=== PATIENT | female | born 1970 | race Caucasian/White ===

== ENCOUNTER → 2019-09-10 | Outpatient (CLI) | payer OTHER ==
--- NOTE | 2019-09-12 17:02 | PE ---
Nuclear medicine PET/CT HISTORY: Solitary pulmonary nodule, initial, lung cancer Patient received 11.4 mCi F-18 FDG intravenously in delayed scanning was performed from the skull bas e to the mid thighs. Localization and attenuation correction CT scan was performed. Small field-of-vi ew images obtained through the head and neck. No comparisons There is a lung mass present in the right upper lobe which shows a lobular contour, central cavitatio n, spiculated margins extending to the pleural surface and measures approximately 3.1 cm, there is as sociated hypermetabolic uptake, SUV is 5.6. Adjacent to the fissure at the superior margin there is a subcentimeter nodule measuring 6 mm. Additional subcentimeter nodules are present in the right upper lobe, axial image #95, 100. No definite associated hypermetabolic uptake. Emphysematous changes are present within the lungs. There is no pleural or pericardial effusion. There is no mediastinal, axill gilberto, or hilar adenopathy. No evident cervical adenopathy. Uptake along the sternocleidomastoid muscle is likely physiologic. abdomen: No evident liver mass. Patient is post cholecystectomy. No suspicious hypermetabolic uptake. No retroperitoneal adenopathy. There is no ascites. Osseous structures show no associated hypermetabolic uptake. IMPRESSION: Hypermetabolic uptake corresponding to patient's cavitary right upper lobe lung mass. The re are additional subcentimeter lung nodules do not show uptake possibly due to small size.
== END | disposition home or self-care (01) ==
LOC: RADPETMAIN 07:48
PROVIDERS: ATTEND Internal Medicine Sleep Medicine
DX: R91.8 Other nonspecific abnormal finding of lung field (principal)
CPT/HCPCS: 78815; A9552

== ENCOUNTER → 2019-10-28 | Outpatient (CLI) | payer OTHER ==
[2019-10-28 10:36] LABS: Basophils # (A) 0.1 k/uL (0-0.2); Basophils % (A) 2 %; Eosinophils # (A) 0.2 k/uL (0-0.7); Eosinophils % (A) 3 %; HCT 45.9 % (34.0-46.0); HGB 14.7 gm/dL (11.4-16.0); Lymphocytes # (A) 2.6 k/uL (1.0-4.8); Lymphocytes % (A) 45 %; MCH 28.5 pg (25.0-35.0); MCHC 32.1 g/dL (31.0-37.0); MCV 88.7 fL (80.0-100.0); Mean Platelet Volume 6.5; Monocytes # (A) 0.3 k/uL (0-1.0); Monocytes % (A) 6 %; Neutrophils # (A) 2.5 k/uL (1.3-7.7); Neutrophils % (A) 43 %; Platelet Count 361 k/uL (150-450); RBC 5.17 m/uL (3.80-5.40); RDW 12.9 % (11.5-15.5); WBC 5.8 k/uL (3.8-10.6)
[2019-10-28 10:45] LABS: African American GFR (CKD) >90 (>60 ml/min/1.73 sqM); Anion Gap 7 mmol/L; Blood Urea Nitrogen 11 mg/dL (7-17); Carbon Dioxide 25 mmol/L (22-30); Chloride 105 mmol/L (98-107); Non-African American GFR(CKD) >90 (>60 ml/min/1.73 sqM); Potassium 4.4 mmol/L (3.5-5.1); Sodium 137 mmol/L (137-145)
[2019-10-28 10:56] LABS: Appearance,Urine Clear (Clear); Bacteria,Urine Rare /hpf; Bilirubin,Urine Negative (Negative); Blood,Urine Moderate (Negative); Color,Urine Yellow; Glucose,Urine (UA) Negative (Negative); Hyaline Casts,Urine 1 /lpf (0-2); Ketones,Urine Negative (Negative); Leukocyte Esterase,Urine Negative (Negative); Nitrite,Urine Negative (Negative); PH, Urine 6.5 (5.0-8.0); Protein,Urine Negative (Negative); RBC,Urine 41 /hpf (0-5); Specific Gravity,Urine 1.013 (1.001-1.035); Squamous Epithelial Cell,Urine <1 /hpf (0-4); Urobilinogen,Urine <2.0 mg/dL (<2.0)
== END | disposition home or self-care (01) ==
LOC: LABWHC1 09:51
PROVIDERS: ATTEND Thoracic Surgery (Cardiothoracic Vascular Surgery)
DX: Z01.812 Encounter for preprocedural laboratory examination (principal); C34.11 Malignant neoplasm of upper lobe, right bronchus or lung
CPT/HCPCS: 36415; 80051; 81001; 82565; 84520; 85025

== ENCOUNTER 2019-11-03 05:34 | Inpatient (IN) | payer OTHER ==
[2019-11-03] MEDS ORDERED: ONDANSETRON 4 MG/2 ML VIAL IVP ONE (05:44)
[2019-11-03] MEDS ORDERED: HYDROmorphone 0.5 MG/0.5 ML SYRINGE IVP PRN (05:44)
[2019-11-03] MEDS ORDERED: LACTATED RINGERS 1,000 ML IV SCH ×2 (05:44)
[2019-11-03] MEDS ORDERED: SCOPOLAMINE 1.5MG/72HR PATCH TRANSDERM ONE (05:44)
[2019-11-03] MEDS ORDERED: LIDOCAINE 1% 20 ML VIAL (10MG/ML) FOR IV START INTRADERMA PRN (05:44)
[2019-11-03] MEDS ORDERED: DEXAMETHASONE SOD PHOSPHATE 10 MG/ML 1 ML VIAL IV ONE (05:44)
[2019-11-03] MEDS: VANCOMYCIN 1,000 MG in SODIUM CHLORIDE 0.9% 250 ML IVPB ONE ×2 (08:00→08:28)
[2019-11-03] MEDS ORDERED: BUPIVACAINE (PF) 0.5% 30 ML VIAL SQ ONE ×2 (08:28)
[2019-11-03] MEDS ORDERED: NICOTINE 14MG/24HR PATCH TRANSDERM PRN (10:13)
--- NOTE | 2019-11-03 10:39 | P.OP ---
Date of Procedure: 11/03/19 Preoperative Diagnosis: Lung carcinoma right upper lobe Postoperative Diagnosis: Same Procedure(s) Performed: Robotic-assisted thoracoscopic right upper lobectomy with mediastinal lymph node dissection Anesthesia: ARMAND Surgeon: Edenilson Carnes Plastic Outfitter #1: Johnnie Garcia Estimated Blood Loss (ml): 20 IV fluids (ml): 1,100 Urine output (ml): 200 Pathology: other (Lymph node stations R4, level 7, R8, R9, R 10, R 11; right upper lobe with frozen section of bronchial margin) Condition: stable Disposition: PACU Indications for Procedure: 48-year-old female with right upper lobe mass needle biopsy positive for non- small cell carcinoma. Metastatic workup was negative. Pulmonary function testing was adequate to tolerate lobectomy. Patient was recommended to undergo right upper lobectomy. Minimally invasive approach was planned. Informed consent was obtained. Operative Findings: Fissures were nearly complete. The tumor was evident in the posterior segment of the right upper lobe peripherally. Did not involve the lobe across the fissure. There was marketed hilar and mediastinal anthracotic adenopathy. Frozen section of the bronchial margin was negative. Description of Procedure: The patient was brought to the operating room, placed supine on the operating table, anesthetized and intubated with a double-lumen endotracheal tube. Tube was positioned with fiberoptic bronchoscopy. Patient was turned in the left lateral decubitus position and appropriately positioned for robotic lobectomy. Tube positioning was confirmed with the bronchoscope heavily left chest sterilely prepped and draped. After a timeout the initial incision was made in the eighth interspace in the anterior axillary line. Robotic 8 mm port was placed here single lung ventilation ensued. After confirming position in the pleural space CO2 insufflation was begun. A 12 mm port was put 10 cm posteriorly in the eighth interspace. Second 12 mm port was put 10 cm anteriorly in the seventh interspace. A second 8 mm port was put posteriorly near the spine in the fifth interspace. A working port was placed at the level of the diaphragm between the 2 most anterior port. The robot was docked. We then began the dissection. After exploring the chest with findings as noted above we took down the inferior pulmonary ligament. Small lymph node was noted at the lower portion of the inferior pulmonary ligament and this was resected and sent as level IX lymph node. Dissection was carried posteriorly up behind the inferior pulmonary vein and into the subcarinal region. Paraesophageal and subcarinal nodes were resected and labeled as level's R8 and level VII lymph nodes respectively. Dissection was carried anteriorly onto the bronchus intermedius and the takeoff of the right upper lobe bronchus was identified. Dissection in this jose de jesus was performed. R 11 lymph nodes were resected. Lingular artery was identified. It was encircled and ligated and divided with a robotic vascular stapler. We were now able to encircle the right upper lobe bronchus resected some more R 11 lymph nodes and ligated and divided the bronchus with a robotic green stapler. We now transitioned to an anterior approach. Branches of the superior pulmonary vein draining the upper lobe were identified encircled and divided with a robotic stapler. Dissection was carried superiorly up in the hilum and the R 10 lymph nodes were resected. Dissection was then carried down onto the pulmonary artery and the truncus anteriormost this was identified encircled and ligated and divided with a vascular stapler. Further R 11 lymph nodes were taken from the region of the pulmonary artery distal to the takeoff of the truncus anterior doses and the remainder of the hilar dissection was completed. The fissures were completed with multiple firings of a robotic 45 mm blue stapler. Lobectomy specimen was then placed in an Endo Catch bag and retracted inferiorly. We completed the lymph node dissection by removing further R 10 lymph nodes inferior to the azygos vein and then dissecting the lymph nodes out in the R4 region superior to the azygos vein and between the trachea and cava. Good hemostasis was verified throughout. At this point the robot was undocked and the working port incision was enlarged somewhat. The lobectomy specimen was brought through this incision in the Endo Catch bag and sent for frozen section of the bronchial margin which subsequently returned negative. The chest was irrigated with warm water and the bronchial stump was noted to have no air leak. There was mild air leak from the staple fissure. 28-Slovenian chest tube was placed through the anteriormost incision and positioned posterior apically. It was secured with an 0 Ethibond suture. Incisions were then closed with layers of Vicryl suture. Rib blocks were performed posteriorly at the level of the incisions using half percent Marcaine. Incisions were dressed with skin glue and Band-Aid dressings and an chest tube dressing around the chest tube site. Patient was turned supine and extubated and transferred to recovery in stable condition. Blood loss for the case was 20 mL.
--- NOTE | 2019-11-03 11:00 | XR ---
EXAMINATION TYPE: XR chest 1V portable DATE OF EXAM: 11/03/2019 COMPARISON: NONE HISTORY: Postop lobectomy. TECHNIQUE: Single frontal view of the chest is obtained. FINDINGS: Status post right upper lobectomy. Right-sided thoracostomy tube terminates of the medial right upper lung apex. No residual pneumothorax seen. Trace subcutaneous emphysema. Right hemithorax volume loss. Multifocal linear subsegmental left-sided atelectasis. Cardia mediastinal silhouette is within normal limits. IMPRESSION: Postsurgical change of the right lung with right thoracostomy tube placement. No residua l pneumothorax. Multifocal subsegmental atelectasis on the left.
[2019-11-03] MEDS ORDERED: DEXTROSE 5%-0.45% NACL 1,000 ML IV SCH (11:43)
[2019-11-03] MEDS ORDERED: IPRATROPIUM-ALBUTEROL 3 ML NEB IH PRN (11:43)
[2019-11-03] MEDS ORDERED: ONDANSETRON 4 MG/2 ML VIAL IVP PRN (11:43)
[2019-11-03] MEDS ORDERED: ACETAMINOPHEN TAB 500 MG TAB PO PRN (11:43)
[2019-11-03] MEDS: KETOROLAC 30 MG/ML 1 ML VIAL IVP SCH ×3 (12:07→23:27)
[2019-11-03] MEDS: IPRATROPIUM-ALBUTEROL 3 ML NEB IH SCH ×3 (12:26→20:44)
--- NOTE | 2019-11-03 14:49 | P.CNPUL ---
History of Present Illness Consult date: 11/03/19 Reason for consult: dyspnea, COPD, lung mass, abnormal CXR/CT Chief complaint: Right upper lobe mass History of present illness: This is a pleasant 48-year-old female who was seen evaluated examined on third floor this patient is well-known to me from the office she has been found to have a right upper lobe mass underwent robotic right upper lobe lobectomy with mediastinal lymph node dissection, postop day #0 evaluated postoperatively, patient has a right-sided chest tube with some air leak is present she is awake and alert denies any chest pain or shortness of breath some 8 The operative site are present Review of Systems All systems: negative Past Medical History Past Medical History: COPD, Pneumonia Additional Past Medical History / Comment(s): RIGHT UPPER LOBE LUNG CANCER DIAGNOSED IN JULY 2019. History of Any Multi-Drug Resistant Organisms: None Reported Past Surgical History: Appendectomy, Cholecystectomy Additional Past Surgical History / Comment(s): LUNG BIOPSY. Past Anesthesia/Blood Transfusion Reactions: No Reported Reaction Past Psychological History: No Psychological Hx Reported Smoking Status: Current every day smoker Past Alcohol Use History: None Reported Additional Past Alcohol Use History / Comment(s): QUIT JULY 2019. SMOKED 30 YRS. Past Drug Use History: Marijuana Additional Drug Use History / Comment(s): DAILY USED FOR PAIN CONTROL. - Past Family History Mother Family Medical History: Cancer Additional Family Medical History / Comment(s): LUNG CANCER Medications and Allergies Home Medications Medication Instructions Recorded Confirmed Type HYDROcodone/APAP 10-325MG [Hazen 1 tab PO Q6H PRN 10/27/19 10/27/19 History 10-325] Ipratropium Nebulized [Atrovent 1 dose INHALATION TID 10/27/19 10/27/19 History Nebulized 0.2 MG/ML] Nicotine 14Mg/24Hr Patch [Habitrol] 1 patch TOPICAL DAILY PRN 10/27/19 10/27/19 History Allergies Allergy/AdvReac Type Severity Reaction Status Date / Time Penicillins Allergy Anaphylaxis Verified 10/27/19 12:15 Physical Exam Vitals: Vital Signs Temp Pulse Pulse Resp BP BP Pulse Ox 11/03/19 13:53 66 16 113/57 100 11/03/19 13:43 60 16 109/59 99 11/03/19 13:02 70 16 110/69 100 11/03/19 12:43 69 16 105/70 99 01/09/20 12:29 99 11/03/19 12:15 62 16 107/59 99 11/03/19 12:02 98.2 F 61 16 103/85 99 11/03/19 11:30 56 L 20 103/59 100 11/03/19 11:15 53 L 20 130/60 100 11/03/19 11:00 65 20 119/57 100 11/03/19 10:45 53 L 20 135/69 99 11/03/19 10:30 62 20 148/74 99 11/03/19 10:21 97.0 F L 67 20 148/66 99 11/03/19 06:23 98.4 F 67 20 139/84 99 Intake and Output 11/02/19 11/03/19 11/03/19 22:59 06:59 14:59 Intake Total 300 1890 Output Total 180 Balance 300 1710 Intake: IV 300 1650 Oral 240 Output: Urine 160 Estimated Blood Loss 20 Other: Weight 69.5 kg - Constitutional General appearance: average body habitus, cooperative, disheveled, mild distress - EENT Eyes: anicteric sclerae, EOMI, PERRLA, normal appearance ENT: normal oropharynx Ears: bilateral: normal - Neck Neck: normal ROM Carotids: bilateral: upstroke normal Thyroid: negative: normal size - Respiratory Respiratory: bilateral: CTA - Cardiovascular Rhythm: regular Heart sounds: normal: S1, S2 - Gastrointestinal General gastrointestinal: decreased bowel sounds - Integumentary Integumentary: normal turgor - Neurologic Neurologic: CNII-XII intact - Musculoskeletal Musculoskeletal: gait normal, generalized weakness, strength equal bilaterally - Psychiatric Psychiatric: A&O x's 3, appropriate affect, intact judgment & insight Results - Diagnostic Findings Chest x-ray: report reviewed, image reviewed (Finding as noted above) Assessment and Plan Assessment: Right upper lobe non-small cell cancer stage I Severe degree of COPD Extensive history of smoking and nicotine use Mood disorder depression Plan: Continue deep breathing exercise DVT and peptic ulcer disease prophylaxis Follow chest x-ray Pain control Time with Patient: Greater than 30
[2019-11-03] MEDS: HYDROcodone/APAP 10-325MG 1 EACH TAB PO PRN ×2 (15:06→20:31)
[2019-11-03] MEDS: HEPARIN SODIUM,PORCINE 5,000 UNIT/ML 1 ML VIAL SQ SCH ×2 (16:44→23:27)
[2019-11-03] MEDS: CLINDAMYCIN 900 MG in DEXTROSE 5% IN WATER 50 ML IVPB SCH ×2 (16:48)
[2019-11-04] MEDS: CLINDAMYCIN 900 MG in DEXTROSE 5% IN WATER 50 ML IVPB SCH ×2 (00:01)
[2019-11-04] MEDS: HYDROcodone/APAP 10-325MG 1 EACH TAB PO PRN ×4 (05:33→23:33)
[2019-11-04] MEDS: PANTOPRAZOLE 40 MG TABLET PO SCH (05:34)
--- NOTE | 2019-11-04 06:56 | XR ---
EXAMINATION TYPE: XR chest 1V DATE OF EXAM: 11/04/2019 CLINICAL HISTORY: Postpartial pneumonectomy progress study. TECHNIQUE: Single AP portable upright view of the chest is obtained. COMPARISON: Chest x-ray from one day earlier. Outside CTA chest August 16, 2019 FINDINGS: There is right apical chest tube with adjacent subcutaneous emphysema. No identifiable pne umothorax. Background chronic emphysematous change with patchy right greater than left bibasilar atelectasis. EK G leads are now present. Cardiac silhouette size is stable and within normal limits. Osseous structur es are intact. IMPRESSION: Overall stable findings, right apical chest tube without residual pneumothorax.
[2019-11-04 07:03] LABS: African American GFR (CKD) >90 (>60 ml/min/1.73 sqM); Anion Gap 4 mmol/L; Basophils # (A) 0.1 k/uL (0-0.2); Basophils % (A) 1 %; Blood Urea Nitrogen 10 mg/dL (7-17); Calcium 8.4 mg/dL (8.4-10.2); Carbon Dioxide 27 mmol/L (22-30); Chloride 105 mmol/L (98-107); Eosinophils # (A) 0.1 k/uL (0-0.7); Eosinophils % (A) 1 %; Glucose 91 mg/dL (74-99); HCT 34.8 % (34.0-46.0); HGB 11.2 gm/dL (11.4-16.0); Lymphocytes # (A) 1.9 k/uL (1.0-4.8); Lymphocytes % (A) 27 %; MCH 28.7 pg (25.0-35.0); MCHC 32.1 g/dL (31.0-37.0); MCV 89.5 fL (80.0-100.0); Mean Platelet Volume 7.1; Monocytes # (A) 0.3 k/uL (0-1.0); Monocytes % (A) 5 %; Neutrophils # (A) 4.5 k/uL (1.3-7.7); Neutrophils % (A) 64 %; Non-African American GFR(CKD) >90 (>60 ml/min/1.73 sqM); Platelet Count 274 k/uL (150-450); Potassium 4.4 mmol/L (3.5-5.1); RBC 3.88 m/uL (3.80-5.40); RDW 13.4 % (11.5-15.5); Sodium 136 mmol/L (137-145); WBC 7.1 k/uL (3.8-10.6)
[2019-11-04] MEDS: IPRATROPIUM-ALBUTEROL 3 ML NEB IH SCH ×4 (07:04→19:03)
[2019-11-04] MEDS: KETOROLAC 30 MG/ML 1 ML VIAL IVP SCH ×4 (07:46→23:32)
[2019-11-04] MEDS: HEPARIN SODIUM,PORCINE 5,000 UNIT/ML 1 ML VIAL SQ SCH ×3 (07:47→23:32)
--- NOTE | 2019-11-04 08:34 | P.PN ---
Subjective Progress Note Date: 11/04/19 Principal diagnosis: Lung carcinoma, right upper lobe. Previous medical history of long history of tobacco dependence, recent cessation, COPD, marijuana use, and family history of lung cancer and myocardial infarction. POD #1 Robotic-assisted thoracoscopic right upper lobectomy with mediastinal lymph node dissection The patient is currently sitting up in a recliner in the cardiac stepdown unit in no acute distress. States pain is controlled on current medication regimen, denies shortness of breath. Right pleural chest tube remains to waterseal, very minor air leak present with forceful coughing. No new concerns. Objective - Vital Signs Vital signs: Vital Signs Temp 98.6 F 11/04/19 04:00 Pulse 64 11/04/19 07:16 Resp 18 11/04/19 04:00 BP 95/58 11/04/19 04:00 Pulse Ox 98 11/04/19 07:07 Intake & Output 11/03/19 11/04/19 11/04/19 18:59 06:59 18:59 Intake Total 2470 Output Total 480 1330 Balance 1989 Weight 71.668 kg Intake: IV 1650 Oral 820 Output: Chest Tube Drainage 50 40 Chest Tube Right Mid- 50 40 Axillary Chest Drainage 40 Right Lower Lateral Chest 40 Urine 410 1250 Estimated Blood Loss 20 Other: Voiding Method Indwelling Catheter Indwelling Catheter - Constitutional General appearance: Present: cooperative, no acute distress - Respiratory Details: Lungs sounds clear but diminished bilaterally. Respirations even, nonlabored. Currently on room air with oxygen saturation 98%. Able to achieve 1000 mL on her incentive spirometry. Strong cough. Right pleural chest tube to waterseal, 40 mL thin serosanguineous drainage overnight, 90 mL since surgery, tiny air leak present with forceful coughing only, tidaling present in the waterseal chamber - Cardiovascular Details: S1, S2 present. Regular rate and rhythm, sinus rhythm on telemetry. Palpable peripheral pulses bilaterally. No edema present. No calf pain or tenderness noted. Bilateral lower extremity SCDs present. - Gastrointestinal Gastrointestinal Comment(s): Abdomen soft, nontender, nondistended. Active bowel sounds present 4 quadrants. Tolerating diet. - Genitourinary Genitourinary Comment(s): Anderson present draining clear, yellow urine. - Integumentary Integumentary Comment(s): Skin is warm and dry with evidence of good perfusion. Right lateral chest wall incisions well approximated and covered with dry intact dressings - Neurologic Neurologic: Present: CNII-XII intact - Musculoskeletal Musculoskeletal: Present: gait normal, strength equal bilaterally - Psychiatric Psychiatric: Present: A&O x's 3, appropriate affect, intact judgment & insight - Allied health notes Allied health notes reviewed: nursing - Labs CBC & Chem 7: 11/04/19 06:09 11/04/19 06:09 Labs: Abnormal Lab Results - Last 24 Hours (Table) 11/04/19 11/04/19 Range/Units 06:09 06:09 Hgb 11.2 L D (11.4-16.0) gm/dL Sodium 136 L (137-145) mmol/L - Imaging and Cardiology Chest x-ray: report reviewed, image reviewed Assessment and Plan Assessment: 1. Lung carcinoma, right upper lobe, positive for non-small cell carcinoma per CT-guided needle biopsy, status post robotic-assisted thoracoscopic right upper lobectomy with mediastinal lymph node dissection 2. Previous heavy tobacco dependence 3. COPD 4. Marijuana use 5. Family history of lung cancer and myocardial infarction Plan: 1. Continue right pleural chest tube to water seal for another 24 hours. Will monitor for complete resolution of air leak. Pathology pending. 2. Encourage incentive spirometry use 10 times every hour while awake. 3. Discontinue Anderson. Hep-Lock IV 4. Increase activity, ambulate in hallway 5. Encourage continued smoking cessation 6. Bronchodilators per pulmonology 7. Pain control with current medication regimen. 8. Repeat chest x-ray in the morning 9. More recommendations to follow Time with Patient: Greater than 30
--- NOTE | 2019-11-04 14:29 | P.PN ---
Subjective Progress Note Date: 11/04/19 Principal diagnosis: Right upper lobe non-small cell cancer stage I Severe degree of COPD Extensive history of smoking and nicotine use Mood disorder depression 11/04/2019, patient seen eval examined during the rounds labs reviewed medications reviewed care plan discussed with the patient as well, patient has a right-sided chest tube minimal air leak is present denies any chest pain chest x-ray showed well expanded lungs no residual pneumothorax is seen slight discomfort is present otherwise patient has been doing well This is a pleasant 48-year-old female who was seen evaluated examined on third floor this patient is well-known to me from the office she has been found to have a right upper lobe mass underwent robotic right upper lobe lobectomy with mediastinal lymph node dissection, postop day #0 evaluated postoperatively, patient has a right-sided chest tube with some air leak is present she is awake and alert denies any chest pain or shortness of breath some 8 The operative site are present Objective - Vital Signs Vital signs: Vital Signs Temp 97.9 F 11/04/19 11:10 Pulse 66 11/04/19 11:16 Resp 16 11/04/19 11:10 BP 96/49 11/04/19 11:10 Pulse Ox 99 11/04/19 11:10 Intake & Output 11/03/19 11/04/19 11/04/19 18:59 06:59 18:59 Intake Total 2470 440 Output Total 480 1330 0 Balance 1989 -1329 440 Weight 71.668 kg Intake: IV 1650 200 Clindamycin 900 mg In 200 Dextrose 5% in Water 50 ml @ 50 mls/hr IVPB Q8HR [facility] Rx#:[id number] Oral 820 240 Output: Chest Tube Drainage 50 40 0 Chest Tube Right Mid- 50 40 0 Axillary Chest Drainage 40 Right Lower Lateral Chest 40 Urine 410 1250 Estimated Blood Loss 20 Other: Voiding Method Indwelling Catheter Indwelling Catheter Toilet - Exam - Constitutional General appearance: average body habitus, cooperative, disheveled, mild distress - EENT Eyes: anicteric sclerae, EOMI, PERRLA, normal appearance ENT: normal oropharynx Ears: bilateral: normal - Neck Neck: normal ROM Carotids: bilateral: upstroke normal Thyroid: negative: normal size - Respiratory Respiratory: bilateral: CTA - Cardiovascular Rhythm: regular Heart sounds: normal: S1, S2 - Gastrointestinal General gastrointestinal: decreased bowel sounds - Integumentary Integumentary: normal turgor - Neurologic Neurologic: CNII-XII intact - Musculoskeletal Musculoskeletal: gait normal, generalized weakness, strength equal bilaterally - Psychiatric Psychiatric: A&O x's 3, appropriate affect, intact judgment & insight - Labs CBC & Chem 7: 11/04/19 06:09 11/04/19 06:09 Labs: Abnormal Lab Results - Last 24 Hours (Table) 11/04/19 11/04/19 Range/Units 06:09 06:09 Hgb 11.2 L D (11.4-16.0) gm/dL Sodium 136 L (137-145) mmol/L Assessment and Plan Assessment: Right upper lobe non-small cell cancer stage I Severe degree of COPD Extensive history of smoking and nicotine use Mood disorder depression Plan: Continue deep breathing exercise DVT and peptic ulcer disease prophylaxis Follow chest x-ray Pain control Time with Patient: Greater than 30
[2019-11-05] MEDS: KETOROLAC 30 MG/ML 1 ML VIAL IVP SCH ×3 (06:09→17:51)
[2019-11-05] MEDS: PANTOPRAZOLE 40 MG TABLET PO SCH (06:11)
[2019-11-05] MEDS: HYDROcodone/APAP 10-325MG 1 EACH TAB PO PRN ×3 (06:11→19:41)
--- NOTE | 2019-11-05 07:09 | XR ---
EXAMINATION TYPE: XR chest 2V DATE OF EXAM: 11/05/2019 HISTORY: post lobectomy. REFERENCE: Previous study dated 11/04/2019. FINDINGS: Right pleural drain remains in place. This has been withdrawn slightly. I do not see eviden ce of residual pneumothorax. The lungs are clear. Pleural spaces are clear. The heart is not enlarged . IMPRESSION: NO SIGNIFICANT INTERVAL CHANGE IN CHEST.
[2019-11-05] MEDS: IPRATROPIUM-ALBUTEROL 3 ML NEB IH SCH ×4 (07:50→20:27)
[2019-11-05] MEDS: HEPARIN SODIUM,PORCINE 5,000 UNIT/ML 1 ML VIAL SQ SCH ×2 (08:43→17:49)
--- NOTE | 2019-11-05 09:14 | P.PN ---
Subjective Progress Note Date: 11/05/19 Principal diagnosis: Lung carcinoma, right upper lobe. Previous medical history of long history of tobacco dependence, recent cessation, COPD, marijuana use, and family history of lung cancer and myocardial infarction. POD #1 Robotic-assisted thoracoscopic right upper lobectomy with mediastinal lymph node dissection. The patient is currently lying in bed on the cardiac stepdown unit. She is in no acute distress. He currently denies any complaints of pain or shortness of breath. Remainder oxygen saturation is 96% and she is achieving 1000 mL on her incentive spirometry. Right pleural chest tube remained to waterseal with an intermittent air leak present. Draining thin serosanguineous drainage. Chest x-ray this morning demonstrating a small right apical pneumothorax. Objective - Vital Signs Vital signs: Vital Signs Temp 97.4 F L 11/04/19 19:43 Pulse 76 11/05/19 08:00 Resp 18 11/05/19 05:01 BP 112/78 11/05/19 05:01 Pulse Ox 96 11/05/19 07:52 Intake & Output 11/04/19 11/05/19 11/05/19 18:59 06:59 18:59 Intake Total 440 400 240 Output Total 0 350 Balance 440 50 240 Weight 72.1 kg Intake: IV 200 Clindamycin 900 mg In 200 Dextrose 5% in Water 50 ml @ 50 mls/hr IVPB Q8HR [facility] Rx#:[id number] Oral 240 400 240 Output: Chest Tube Drainage 0 Chest Tube Right Mid- 0 Axillary Chest Urine 350 Other: Voiding Method Toilet Toilet # Voids 1 - Constitutional General appearance: Present: cooperative, no acute distress - Respiratory Details: Lung sounds essentially clear throughout. Respirations are symmetrical and nonlabored. Oxygen saturation 96% on room air. Achieving 1000 mL on her incentive spirometry. Right pleural chest tube to waterseal with an intermittent air leak present. - Cardiovascular Details: Regular rhythm and rate. S1 and S2 present, negative for S3, gallop or murmur. No edema present. Knee-high sequential compression devices in place to bilateral lower extremities. - Gastrointestinal Gastrointestinal Comment(s): Abdomen is soft, nontender and nondistended. Active bowel sounds present in all 4 abdominal quadrants. No guarding or rigidity. No organomegaly appreciated. - Neurologic Neurologic Comment(s): No focal deficits. Neurologic: Present: CNII-XII intact - Musculoskeletal Musculoskeletal: Present: gait normal, strength equal bilaterally - Psychiatric Psychiatric: Present: A&O x's 3, appropriate affect, intact judgment & insight - Allied health notes Allied health notes reviewed: nursing - Labs CBC & Chem 7: 11/04/19 06:09 11/04/19 06:09 - Imaging and Cardiology Chest x-ray: report reviewed, image reviewed Assessment and Plan Assessment: 1. Lung carcinoma, right upper lobe, positive for non-small cell carcinoma per CT-guided needle biopsy, status post robotic-assisted thoracoscopic right upper lobectomy with mediastinal lymph node dissection 2. Previous heavy tobacco dependence 3. COPD 4. Marijuana use 5. Family history of lung cancer and myocardial infarction Plan: 1. Place right pleural chest tube to low continuous wall suction -20 cm H2O due to the intermittent air leak and demonstration of small right apical pneumothorax. Will continue to monitor for complete resolution of air leak. 2. Encourage incentive spirometry use 10 times every hour while awake. 3. Surgical pathology remains pending. 4. Increase activity as tolerated. 5. Continue to discuss the importance of continued smoking cessation. 6. Bronchodilators per pulmonology management. 7. Pain control with current medication regimen. 8. We will continue to monitor daily chest x-rays. 9. More recommendations to follow based on patient's clinical course. Time with Patient: Greater than 30
[2019-11-05] MEDS ORDERED: MORPHINE SULFATE 2 MG/ML SYRINGE IVP STA (10:12)
[2019-11-05] MEDS: HYDROmorphone 1 MG/ML 1 ML SYRINGE IVP PRN ×2 (15:40→22:39)
--- NOTE | 2019-11-05 15:48 | P.PN ---
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 I Severe degree of COPD Extensive history of smoking and nicotine use Mood disorder depression 11/05/2019, patient seen eval examined during the rounds labs reviewed medications reviewed, air leak is present to the chest tube, x-ray on water seal showed significant pneumothorax this morning issues with the pain and insomnia have been dealt with, patient has been on [place] Toradol and has been started on Dilaudid if pain does not improve Toradol does have been escalated, 11/04/2019, patient seen eval examined during the rounds labs reviewed medications reviewed care plan discussed with the patient as well, patient has a right-sided chest tube minimal air leak is present denies any chest pain chest x-ray showed well expanded lungs no residual pneumothorax is seen slight discomfort is present otherwise patient has been doing well This is a pleasant 48-year-old female who was seen evaluated examined on third floor this patient is well-known to me from the office she has been found to have a right upper lobe mass underwent robotic right upper lobe lobectomy with mediastinal lymph node dissection, postop day #0 evaluated postoperatively, patient has a right-sided chest tube with some air leak is present she is awake and alert denies any chest pain or shortness of breath some 8 The operative site are present Objective - Vital Signs Vital signs: Vital Signs Temp 97.7 F 11/05/19 11:50 Pulse 73 11/05/19 11:50 Resp 20 11/05/19 11:50 BP 122/66 11/05/19 11:50 Pulse Ox 99 11/05/19 11:50 Intake & Output 11/04/19 11/05/19 11/05/19 18:59 06:59 18:59 Intake Total 440 400 360 Output Total 0 350 Balance 440 50 360 Weight 72.1 kg Intake: IV 200 Clindamycin 900 mg In 200 Dextrose 5% in Water 50 ml @ 50 mls/hr IVPB Q8HR [facility] Rx#:[id number] Oral 240 400 360 Output: Chest Tube Drainage 0 Chest Tube Right Mid- 0 Axillary Chest Urine 350 Other: Voiding Method Toilet Toilet Toilet # Voids 1 1 - Exam - Constitutional General appearance: average body habitus, cooperative, disheveled, mild distress - EENT Eyes: anicteric sclerae, EOMI, PERRLA, normal appearance ENT: normal oropharynx Ears: bilateral: normal - Neck Neck: normal ROM Carotids: bilateral: upstroke normal Thyroid: negative: normal size - Respiratory Respiratory: bilateral: CTA - Cardiovascular Rhythm: regular Heart sounds: normal: S1, S2 - Gastrointestinal General gastrointestinal: decreased bowel sounds - Integumentary Integumentary: normal turgor - Neurologic Neurologic: CNII-XII intact - Musculoskeletal Musculoskeletal: gait normal, generalized weakness, strength equal bilaterally - Psychiatric Psychiatric: A&O x's 3, appropriate affect, intact judgment & insight - Labs CBC & Chem 7: 11/04/19 06:09 11/04/19 06:09 Assessment and Plan Assessment: Right upper lobe non-small cell cancer stage I Severe degree of COPD Extensive history of smoking and nicotine use Mood disorder depression Chest pain postoperative Insomnia Plan: Continue deep breathing exercise DVT and peptic ulcer disease prophylaxis Follow chest x-ray Pain control toward old dose has been escalated, continue Davis, if pain not improved then will use Dilaudid Patient is placed on melatonin Time with Patient: Greater than 30
[2019-11-06] MEDS: HEPARIN SODIUM,PORCINE 5,000 UNIT/ML 1 ML VIAL SQ SCH ×3 (00:05→15:48)
[2019-11-06] MEDS: KETOROLAC 30 MG/ML 1 ML VIAL IVP SCH ×5 (00:05→17:14)
[2019-11-06] MEDS: HYDROcodone/APAP 10-325MG 1 EACH TAB PO PRN ×4 (03:24→21:07)
[2019-11-06] MEDS: HYDROmorphone 1 MG/ML 1 ML SYRINGE IVP PRN ×2 (06:30→19:00)
[2019-11-06] MEDS: PANTOPRAZOLE 40 MG TABLET PO SCH (06:31)
--- NOTE | 2019-11-06 06:32 | XR ---
EXAMINATION TYPE: XR chest 1V portable DATE OF EXAM: 11/06/2019 HISTORY: post op right upper lobectomy. REFERENCE: Previous study dated 11/05/2019. FINDINGS: A right pleural drain remains in place. No definite pneumothorax is seen on today's examina tion. The lungs are otherwise clear. Pleural space are clear. The heart is not enlarged. IMPRESSION: I CAN NO LONGER SEE EVIDENCE OF A RIGHT-SIDED PNEUMOTHORAX.
[2019-11-06] MEDS: IPRATROPIUM-ALBUTEROL 3 ML NEB IH SCH ×4 (07:14→20:37)
--- NOTE | 2019-11-06 09:25 | P.PN ---
Subjective Progress Note Date: 11/06/19 Principal diagnosis: Lung carcinoma, right upper lobe. Previous medical history of long history of tobacco dependence, recent cessation, COPD, marijuana use, and family history of lung cancer and myocardial infarction. POD #3 Robotic-assisted thoracoscopic right upper lobectomy with mediastinal lymph node dissection. Postoperative right apical pneumothorax, an expected outcome of this type of surgery. The patient is currently lying in bed on the cardiac stepdown unit. She is in no acute distress. Currently she denies any complaints of pain or shortness of breath. Yesterday her chest tube was placed back to low continuous wall suction due to a positive air leak on her chest tube and a finding of a small right apical pneumothorax on her chest x-ray, once her chest tube was placed back to low continuous wall suction she did complain of pain to her right shoulder 10 out of 10 on the pain scale. Oxygen saturation is 94% on room air and she is achieving 1651-7154 mL on her incentive spirometry. Right pleural chest tube remains to low continuous wall suction at -20 cm H2O with an intermittent air leak present. Draining thin serosanguineous drainage. Chest x-ray completed this morning which shows no evidence of pneumothorax. Objective - Vital Signs Vital signs: Vital Signs Temp 98.2 F 11/05/19 20:00 Pulse 76 11/06/19 07:25 Resp 18 11/06/19 03:51 BP 133/78 11/05/19 20:00 Pulse Ox 94 L 11/06/19 07:17 Intake & Output 11/05/19 11/06/19 11/06/19 18:59 06:59 18:59 Intake Total 480 800 120 Output Total 1200 Balance 480 -400 120 Weight 71.9 kg Intake: Oral 480 800 120 Output: Urine 1200 Other: Voiding Method Toilet Toilet # Voids 1 1 - Constitutional General appearance: Present: cooperative, no acute distress - Respiratory Details: Lung sounds essentially clear throughout. Respirations are symmetrical and nonlabored. Oxygen saturation 94% on room air. Achieving 5232-7356 mL on her incentive spirometry. Right pleural chest tube remains in place to low continuous wall suction -20 cm H2O. Intermittent air leak is present. Draining thin serosanguineous drainage. - Cardiovascular Details: Regular rhythm and rate. S1 and S2 present, negative for S3, gallop or murmur. No edema present. Knee-high sequential compression devices in place to her bilateral lower extremities. - Gastrointestinal Gastrointestinal Comment(s): Abdomen is soft, nontender and nondistended. Active bowel sounds present in all 4 abdominal quadrants. No guarding or rigidity. No organomegaly appreciated. - Integumentary Integumentary Comment(s): Skin is warm and dry. No clubbing or cyanosis is present. Dressing is clean dry and in place to her right chest incisions. Dressing to her right pleural chest tube is clean, dry and in place. - Neurologic Neurologic Comment(s): No focal neurological deficits. Neurologic: Present: CNII-XII intact - Musculoskeletal Musculoskeletal: Present: gait normal, strength equal bilaterally - Psychiatric Psychiatric: Present: A&O x's 3, appropriate affect, intact judgment & insight - Allied health notes Allied health notes reviewed: nursing - Labs CBC & Chem 7: 11/04/19 06:09 11/04/19 06:09 - Imaging and Cardiology Chest x-ray: report reviewed, image reviewed Assessment and Plan Assessment: 1. Lung carcinoma, right upper lobe, positive for non-small cell carcinoma per CT-guided needle biopsy, status post robotic-assisted thoracoscopic right upper lobectomy with mediastinal lymph node dissection 2. Previous heavy tobacco dependence 3. COPD 4. Marijuana use 5. Family history of lung cancer and myocardial infarction 6. Mood disorder depression 7. History of insomnia Plan: 1. We will place her right pleural chest tube to waterseal. Continue to observe for resolution of her intermittent air leak. 2. Encourage incentive spirometry use 10 times every hour while awake. 3. Surgical pathology remains pending. 4. Increase activity as tolerated. Ambulate in the cardiac stepdown unit hallway as tolerated. 5. Continue to discuss the importance of continued smoking cessation. Nicotine patches have been ordered. 6. Bronchodilators per pulmonology management. 7. Pain control with current medication regimen. 8. We will continue to monitor daily chest x-rays. 9. Melatonin has been added as the patient reports that she has a history of insomnia and takes melatonin at home for sleep aid. 10. More recommendations to follow based on patient's clinical course. Time with Patient: Greater than 30
[2019-11-06] MEDS: MELATONIN 1 MG TAB PO SCH (21:07)
--- NOTE | 2019-11-06 22:56 | P.PN ---
Subjective Progress Note Date: 11/06/19 Principal diagnosis: Right upper lobe non-small cell cancer stage I Severe degree of COPD Extensive history of smoking and nicotine use Mood disorder depression 11/06/2019, patient seen eval examined during the rounds labs reviewed medications reviewed care plan discussed, no obvious distress present pain is improved now is still have intermittent air leak out of her chest x-ray showed no significant pneumothorax, chest tube remains on suction 11/05/2019, patient seen eval examined during the rounds labs reviewed medications reviewed, air leak is present to the chest tube, x-ray on water seal showed significant pneumothorax this morning issues with the pain and insomnia have been dealt with, patient has been on [place] Toradol and has been started on Dilaudid if pain does not improve Toradol does have been escalated, 11/04/2019, patient seen eval examined during the rounds labs reviewed medications reviewed care plan discussed with the patient as well, patient has a right-sided chest tube minimal air leak is present denies any chest pain chest x-ray showed well expanded lungs no residual pneumothorax is seen slight discomfort is present otherwise patient has been doing well This is a pleasant 48-year-old female who was seen evaluated examined on third floor this patient is well-known to me from the office she has been found to have a right upper lobe mass underwent robotic right upper lobe lobectomy with mediastinal lymph node dissection, postop day #0 evaluated postoperatively, patient has a right-sided chest tube with some air leak is present she is awake and alert denies any chest pain or shortness of breath some 8 The operative site are present Objective - Vital Signs Vital signs: Vital Signs Temp 98.2 F 11/06/19 20:00 Pulse 85 11/06/19 20:51 Resp 18 11/06/19 20:00 BP 125/75 11/06/19 20:00 Pulse Ox 97 11/06/19 20:00 Intake & Output 11/06/19 11/06/19 11/07/19 06:59 18:59 06:59 Intake Total 800 600 Output Total 1200 90 Balance -400 510 Weight 71.9 kg Intake: Oral 800 600 Output: Drainage 90 Right Lower Lateral Chest 90 Urine 1200 Other: Voiding Method Toilet Toilet Toilet # Voids 1 1 0 # Bowel Movements 0 0 - Exam - Constitutional General appearance: average body habitus, cooperative, disheveled, mild distress - EENT Eyes: anicteric sclerae, EOMI, PERRLA, normal appearance ENT: normal oropharynx Ears: bilateral: normal - Neck Neck: normal ROM Carotids: bilateral: upstroke normal Thyroid: negative: normal size - Respiratory Respiratory: bilateral: CTA - Cardiovascular Rhythm: regular Heart sounds: normal: S1, S2 - Gastrointestinal General gastrointestinal: decreased bowel sounds - Integumentary Integumentary: normal turgor - Neurologic Neurologic: CNII-XII intact - Musculoskeletal Musculoskeletal: gait normal, generalized weakness, strength equal bilaterally - Psychiatric Psychiatric: A&O x's 3, appropriate affect, intact judgment & insight - Labs CBC & Chem 7: 11/04/19 06:09 11/04/19 06:09 Assessment and Plan Assessment: Right upper lobe non-small cell cancer stage I Severe degree of COPD Extensive history of smoking and nicotine use Mood disorder depression Chest pain postoperative Insomnia Plan: Continue deep breathing exercise DVT and peptic ulcer disease prophylaxis Follow chest x-ray Pain control Continue melatonin Time with Patient: Greater than 30
[2019-11-07] MEDS: HEPARIN SODIUM,PORCINE 5,000 UNIT/ML 1 ML VIAL SQ SCH ×4 (00:17→23:03)
[2019-11-07] MEDS: KETOROLAC 30 MG/ML 1 ML VIAL IVP SCH ×5 (00:17→23:02)
[2019-11-07] MEDS: PANTOPRAZOLE 40 MG TABLET PO SCH (06:14)
[2019-11-07] MEDS ORDERED: MAGNESIUM HYDROXIDE 2,400 MG/10 ML CUP PO PRN (06:57)
[2019-11-07] MEDS: IPRATROPIUM-ALBUTEROL 3 ML NEB IH SCH ×4 (07:03→19:44)
--- NOTE | 2019-11-07 07:33 | XR ---
EXAMINATION TYPE: XR chest 1V portable DATE OF EXAM: 11/07/2019 COMPARISON: 11/06/2019 HISTORY: Postop evaluation for right upper lobectomy. TECHNIQUE: Single frontal view of the chest is obtained. FINDINGS: There is a new right apical pneumothorax measuring up to 3.8 cm in maximal apical pleural separation. Thoracostomy tube has been change in position now with the distal tip abutting the medias tinal border. No focal consolidation, pleural effusion or pneumothorax. Cardiomediastinal silhouette is within normal limits. Osseous structures are intact. IMPRESSION: New right apical pneumothorax with apical pleural separation of up to 3.8 cm. Thoracosto my tube repositioning is recommended as well as evaluation for an air leak. A [place] level critical message alert has been initiated for Zack Vann MD via the [employer] on 11/07/2019 7:30 AM. This message alert has been sent to Zack Vann MD via th e preferences provided by the clinician for the receipt of Radiology Critical Findings. Message ID [id number].
--- NOTE | 2019-11-07 08:32 | P.PN ---
Subjective Progress Note Date: 11/07/19 Principal diagnosis: Lung carcinoma, right upper lobe. Previous medical history of long history of tobacco dependence, recent cessation, COPD, marijuana use, and family history of lung cancer and myocardial infarction. POD #4 Robotic-assisted thoracoscopic right upper lobectomy with mediastinal lymph node dissection Postoperative right apical pneumothorax, expected outcome The patient is currently sitting up in bed in no acute distress. States pain is controlled with current medication regimen including IV Dilaudid. Denies shortness of breath. Right pleural chest tube placed to waterseal yesterday with no pneumothorax evident on yesterday's chest x-ray. Continues to have intermittent air leak present, chest x-ray this morning demonstrates recurrence of pneumothorax. Patient does remain asymptomatic. Objective - Vital Signs Vital signs: Vital Signs Temp 98.4 F 11/07/19 04:00 Pulse 74 11/07/19 07:12 Resp 16 11/07/19 04:00 BP 98/51 11/07/19 04:00 Pulse Ox 97 11/07/19 04:00 Intake & Output 11/06/19 11/07/19 11/07/19 18:59 06:59 18:59 Intake Total 600 540 Output Total 90 0 Balance 510 540 Weight 71.7 kg Intake: Oral 600 540 Output: Drainage 90 0 Right Lower Lateral Chest 90 0 Other: Voiding Method Toilet Toilet # Voids 1 0 # Bowel Movements 0 0 - Constitutional General appearance: Present: cooperative, no acute distress - Respiratory Details: Lungs sounds diminished bilaterally. Respirations even, nonlabored. Currently on room air with oxygen saturation 97%. Able to achieve 1065-6357 mL on incentive spirometry. Right pleural chest tube present, currently to waterseal, minimal serosanguineous drainage in the last 24 hours, positive intermittent air leak present. - Cardiovascular Details: S1, S2 present. Regular rate and rhythm, sinus rhythm on telemetry. Palpable peripheral pulses bilaterally. No edema present. No calf pain or tenderness noted. SCDs present. - Gastrointestinal Gastrointestinal Comment(s): Abdomen soft, nontender, nondistended. Active bowel sounds present 4 quadrants. Tolerating diet. Positive flatus, negative bowel movement since surgery. - Genitourinary Genitourinary Comment(s): Continues to void clear, yellow urine - Integumentary Integumentary Comment(s): Skin is warm and dry with evidence of good perfusion. Right lateral chest wall incisions well approximated and covered with dry intact dressing. - Neurologic Neurologic: Present: CNII-XII intact - Musculoskeletal Musculoskeletal: Present: gait normal, strength equal bilaterally - Psychiatric Psychiatric: Present: A&O x's 3, appropriate affect, intact judgment & insight - Allied health notes Allied health notes reviewed: nursing - Labs CBC & Chem 7: 11/04/19 06:09 11/04/19 06:09 - Imaging and Cardiology Chest x-ray: image reviewed Assessment and Plan Assessment: 1. Lung carcinoma, right upper lobe, positive for non-small cell carcinoma per CT-guided needle biopsy, status post robotic-assisted thoracoscopic right upper lobectomy with mediastinal lymph node dissection 2. Previous heavy tobacco dependence 3. COPD 4. Marijuana use 5. Family history of lung cancer and myocardial infarction 6. Recent diagnosis of depression 7. Postoperative right pneumothorax Plan: 1. Continue right pleural chest tube to water seal for another 24 hours. Will monitor for resolution of air leak. Pathology pending. 2. Encourage incentive spirometry use 10 times every hour while awake. 3. Increase activity, ambulate in hallway 4. Encourage continued smoking cessation. Nicotine patches ordered 5. Bronchodilators per pulmonology 6. Pain control with current medication regimen. 7. Repeat chest x-ray in the morning 8. Stool softeners added 9. More recommendations to follow Time with Patient: Greater than 30
[2019-11-07] MEDS: SENNOSIDES-DOCUSATE SODIUM 1 EACH TAB PO SCH ×2 (09:00→20:17)
[2019-11-07] MEDS: HYDROmorphone 1 MG/ML 1 ML SYRINGE IVP PRN ×2 (14:55→21:20)
--- NOTE | 2019-11-07 16:28 | P.PN ---
Subjective Progress Note Date: 11/07/19 Principal diagnosis: Right upper lobe non-small cell cancer stage I Severe degree of COPD Extensive history of smoking and nicotine use Mood disorder depression 11/07/2019, patient seen eval examined during the rounds labs reviewed medications reviewed care plan discussed, cough congestion shortness of breath is improved chest pain is better, patient's has a small air leak, pneumothorax is minimal, x-rays reviewed care plan discussed with cardiothoracic surgery and patient as well 11/06/2019, patient seen eval examined during the rounds labs reviewed medications reviewed care plan discussed, no obvious distress present pain is improved now is still have intermittent air leak out of her chest x-ray showed no significant pneumothorax, chest tube remains on suction 11/05/2019, patient seen eval examined during the rounds labs reviewed medications reviewed, air leak is present to the chest tube, x-ray on water seal showed significant pneumothorax this morning issues with the pain and insomnia have been dealt with, patient has been on [place] Toradol and has been started on Dilaudid if pain does not improve Toradol does have been escalated, 11/04/2019, patient seen eval examined during the rounds labs reviewed medications reviewed care plan discussed with the patient as well, patient has a right-sided chest tube minimal air leak is present denies any chest pain chest x-ray showed well expanded lungs no residual pneumothorax is seen slight discomfort is present otherwise patient has been doing well This is a pleasant 48-year-old female who was seen evaluated examined on third floor this patient is well-known to me from the office she has been found to h ave a right upper lobe mass underwent robotic right upper lobe lobectomy with mediastinal lymph node dissection, postop day #0 evaluated postoperatively, patient has a right-sided chest tube with some air leak is present she is awake and alert denies any chest pain or shortness of breath some 8 The operative site are present Objective - Vital Signs Vital signs: Vital Signs Temp 97.8 F 11/07/19 15:33 Pulse 74 11/07/19 15:33 Resp 20 11/07/19 15:33 BP 123/61 11/07/19 15:33 Pulse Ox 97 11/07/19 15:33 Intake & Output 11/06/19 11/07/19 11/07/19 18:59 06:59 18:59 Intake Total 446 901 6838 Output Total 90 0 Balance 342 933 0896 Weight 71.7 kg Intake: Oral 473 767 0619 Output: Drainage 90 0 Right Lower Lateral Chest 90 0 Other: Voiding Method Toilet Toilet # Voids 1 0 # Bowel Movements 0 0 - Exam - Constitutional General appearance: average body habitus, cooperative, disheveled, mild distress - EENT Eyes: anicteric sclerae, EOMI, PERRLA, normal appearance ENT: normal oropharynx Ears: bilateral: normal - Neck Neck: normal ROM Carotids: bilateral: upstroke normal Thyroid: negative: normal size - Respiratory Respiratory: bilateral: CTA - Cardiovascular Rhythm: regular Heart sounds: normal: S1, S2 - Gastrointestinal General gastrointestinal: decreased bowel sounds - Integumentary Integumentary: normal turgor - Neurologic Neurologic: CNII-XII intact - Musculoskeletal Musculoskeletal: gait normal, generalized weakness, strength equal bilaterally - Psychiatric Psychiatric: A&O x's 3, appropriate affect, intact judgment & insight - Labs CBC & Chem 7: 11/04/19 06:09 11/04/19 06:09 Assessment and Plan Assessment: Right upper lobe non-small cell cancer stage I Severe degree of COPD Extensive history of smoking and nicotine use Mood disorder depression Chest pain postoperative Insomnia Plan: Continue deep breathing exercise DVT and peptic ulcer disease prophylaxis Follow chest x-ray Pain control Continue melatonin Time with Patient: Greater than 30
[2019-11-07] MEDS: HYDROcodone/APAP 10-325MG 1 EACH TAB PO PRN (20:15)
[2019-11-07] MEDS: MELATONIN 1 MG TAB PO SCH (20:15)
[2019-11-08 06:21] LABS: HCT 31.8 % (34.0-46.0); MCH 28.3 pg (25.0-35.0); MCHC 31.3 g/dL (31.0-37.0); MCV 90.3 fL (80.0-100.0); Mean Platelet Volume 7.1; Platelet Count 242 k/uL (150-450); RBC 3.52 m/uL (3.80-5.40); RDW 13.7 % (11.5-15.5); WBC 5.3 k/uL (3.8-10.6)
[2019-11-08] MEDS: HYDROcodone/APAP 10-325MG 1 EACH TAB PO PRN ×3 (06:22→19:25)
[2019-11-08] MEDS: PANTOPRAZOLE 40 MG TABLET PO SCH (06:23)
[2019-11-08] MEDS: KETOROLAC 30 MG/ML 1 ML VIAL IVP SCH ×4 (06:23→22:36)
[2019-11-08 06:35] LABS: African American GFR (CKD) >90 (>60 ml/min/1.73 sqM); Anion Gap 3 mmol/L; Blood Urea Nitrogen 20 mg/dL (7-17); Calcium 8.6 mg/dL (8.4-10.2); Carbon Dioxide 29 mmol/L (22-30); Chloride 105 mmol/L (98-107); Glucose 85 mg/dL (74-99); Non-African American GFR(CKD) >90 (>60 ml/min/1.73 sqM); Potassium 4.3 mmol/L (3.5-5.1); Sodium 137 mmol/L (137-145)
[2019-11-08] MEDS: IPRATROPIUM-ALBUTEROL 3 ML NEB IH SCH ×4 (07:08→20:24)
--- NOTE | 2019-11-08 08:53 | XR ---
EXAMINATION TYPE: XR chest 1V portable DATE OF EXAM: 11/08/2019 COMPARISON: 11/07/2019 HISTORY: Right-sided pneumothorax TECHNIQUE: Single frontal view of the chest is obtained. FINDINGS: There is redemonstration of a right-sided pneumothorax improved from the prior with apical separation now of 2.8 cm, improved from the prior of 3.8 cm. The thoracostomy tube appears similar i n position however. The lungs are well aerated. Cardiomediastinal silhouette is within normal limits. IMPRESSION: Slight improvement of the right apical pneumothorax. Similar positioning of the right th oracostomy tube.
--- NOTE | 2019-11-08 09:02 | P.PN ---
Subjective Progress Note Date: 11/08/19 Principal diagnosis: Lung carcinoma, right upper lobe. Previous medical history of long history of tobacco dependence, recent cessation, COPD, marijuana use, and family history of lung cancer and myocardial infarction. POD #5 Robotic-assisted thoracoscopic right upper lobectomy with mediastinal lymph node dissection Postoperative right apical pneumothorax, expected outcome The patient is currently sitting up in bed in no acute distress. States pain is controlled with current medication regimen including IV Dilaudid. Denies shortness of breath. Right pleural chest tube remains to waterseal, continues to have intermittent air leak present mostly with forceful coughing, chest x-ray this morning demonstrates continued pneumothorax. Patient does remain asymptomatic. She is little discouraged that the chest tube passed to continue but does understand the reason Objective - Vital Signs Vital signs: Vital Signs Temp 98.4 F 11/08/19 03:25 Pulse 78 11/08/19 07:20 Resp 18 11/08/19 03:25 BP 103/65 11/08/19 03:25 Pulse Ox 97 11/08/19 03:25 Intake & Output 11/07/19 11/08/19 11/08/19 18:59 06:59 18:59 Intake Total 1140 240 Balance 1140 240 Weight 72 kg Intake: Oral 1140 240 Other: Voiding Method Toilet # Voids 2 - Constitutional General appearance: Present: cooperative, no acute distress - Respiratory Details: Lungs sounds diminished bilaterally. Respirations even, nonlabored. Currently on room air with oxygen saturation 97%. Able to achieve 1301-2606 mL on incentive spirometry. Right pleural chest tube present, currently to waterseal, minimal serosanguineous drainage in the last 24 hours, positive intermittent air leak present mostly with forceful coughing. - Cardiovascular Details: S1, S2 present. Regular rate and rhythm, sinus rhythm on telemetry. Palpable peripheral pulses bilaterally. No edema present. No calf pain or tenderness noted. SCDs present. - Gastrointestinal Gastrointestinal Comment(s): Abdomen soft, nontender, nondistended. Active bowel sounds present 4 quadrants. Tolerating diet. Positive flatus, negative bowel movement since surgery. - Genitourinary Genitourinary Comment(s): Continues to void clear, yellow urine - Integumentary Integumentary Comment(s): Skin is warm and dry with evidence of good perfusion. Right lateral chest wall incisions well approximated and covered with dry intact dressing. - Neurologic Neurologic: Present: CNII-XII intact - Musculoskeletal Musculoskeletal: Present: gait normal, strength equal bilaterally - Psychiatric Psychiatric: Present: A&O x's 3, appropriate affect - Allied health notes Allied health notes reviewed: nursing - Labs CBC & Chem 7: 11/08/19 05:50 11/08/19 05:50 Labs: Abnormal Lab Results - Last 24 Hours (Table) 11/08/19 11/08/19 Range/Units 05:50 05:50 RBC 3.52 L (3.80-5.40) m/uL Hgb 10.0 L (11.4-16.0) gm/dL Hct 31.8 L (34.0-46.0) % BUN 20 H (7-17) mg/dL - Imaging and Cardiology Chest x-ray: image reviewed Assessment and Plan Assessment: 1. Lung carcinoma, right upper lobe, positive for non-small cell carcinoma per CT-guided needle biopsy, status post robotic-assisted thoracoscopic right upper lobectomy with mediastinal lymph node dissection 2. Previous heavy tobacco dependence 3. COPD 4. Marijuana use 5. Family history of lung cancer and myocardial infarction 6. Recent diagnosis of depression 7. Postoperative right pneumothorax Plan: 1. Continue right pleural chest tube to water seal for another 24 hours. Will monitor for resolution of air leak. Pathology pending. 2. Encourage incentive spirometry use 10 times every hour while awake. 3. Increase activity, ambulate in hallway 4. Encourage continued smoking cessation. Nicotine patches ordered 5. Bronchodilators per pulmonology 6. Pain control with current medication regimen. 7. Repeat chest x-ray in the morning 8. Stool softeners added 9. Family may bring in food from home 10. More recommendations to follow Time with Patient: Greater than 30
[2019-11-08] MEDS: HEPARIN SODIUM,PORCINE 5,000 UNIT/ML 1 ML VIAL SQ SCH ×3 (09:43→22:36)
[2019-11-08] MEDS: SENNOSIDES-DOCUSATE SODIUM 1 EACH TAB PO SCH ×2 (09:43→21:03)
--- NOTE | 2019-11-08 14:01 | P.PN ---
Subjective Progress Note Date: 11/08/19 Principal diagnosis: Right upper lobe non-small cell cancer stage I Severe degree of COPD Extensive history of smoking and nicotine use Mood disorder depression 11/08/2019, patient seen eval examined during the rounds labs reviewed medications reviewed care plan discussed with the patient at length, still have intermittent air leak is present on the chest, chest you history the water seal, pain is better under control, we'll continue observe clinical course x-ray performed earlier todaysignificant pneumothorax seen 11/07/2019, patient seen eval examined during the rounds labs reviewed medications reviewed care plan discussed, cough congestion shortness of breath is improved chest pain is better, patient's has a small air leak, pneumothorax is minimal, x-rays reviewed care plan discussed with cardiothoracic surgery and patient as well 11/06/2019, patient seen eval examined during the rounds labs reviewed medications reviewed care plan discussed, no obvious distress present pain is improved now is still have intermittent air leak out of her chest x-ray showed no significant pneumothorax, chest tube remains on suction 11/05/2019, patient seen eval examined during the rounds labs reviewed medications reviewed, air leak is present to the chest tube, x-ray on water seal showed significant pneumothorax this morning issues with the pain and insomnia have been dealt with, patient has been on [place] Toradol and has been started on Dilaudid if pain does not improve Toradol does have been escalated, 11/04/2019, patient seen eval examined during the rounds labs reviewed medications reviewed care plan discussed with the patient as well, patient has a right-sided chest tube minimal air leak is present denies any chest pain chest x-ray showed well expanded lungs no residual pneumothorax is seen slight discomfort is present otherwise patient has been doing well This is a pleasant 48-year-old female who was seen evaluated examined on third floor this patient is well-known to me from the office she has been found to have a right upper lobe mass underwent robotic right upper lobe lobectomy with mediastinal lymph node dissection, postop day #0 evaluated postoperatively, patient has a right-sided chest tube with some air leak is present she is awake and alert denies any chest pain or shortness of breath some 8 The operative site are present Objective - Vital Signs Vital signs: Vital Signs Temp 97.9 F 11/08/19 08:00 Pulse 78 11/08/19 12:00 Resp 20 11/08/19 12:00 BP 112/75 11/08/19 12:00 Pulse Ox 96 11/08/19 12:00 Intake & Output 11/07/19 11/08/19 11/08/19 18:59 06:59 18:59 Intake Total 1140 240 Balance 1140 240 Weight 72 kg Intake: Oral 1140 240 Other: Voiding Method Toilet # Voids 2 - Exam - Constitutional General appearance: average body habitus, cooperative, disheveled, mild distress - EENT Eyes: anicteric sclerae, EOMI, PERRLA, normal appearance ENT: normal oropharynx Ears: bilateral: normal - Neck Neck: normal ROM Carotids: bilateral: upstroke normal Thyroid: negative: normal size - Respiratory Respiratory: bilateral: CTA - Cardiovascular Rhythm: regular Heart sounds: normal: S1, S2 - Gastrointestinal General gastrointestinal: decreased bowel sounds - Integumentary Integumentary: normal turgor - Neurologic Neurologic: CNII-XII intact - Musculoskeletal Musculoskeletal: gait normal, generalized weakness, strength equal bilaterally - Psychiatric Psychiatric: A&O x's 3, appropriate affect, intact judgment & insight - Labs CBC & Chem 7: 11/08/19 05:50 11/08/19 05:50 Labs: Abnormal Lab Results - Last 24 Hours (Table) 11/08/19 11/08/19 Range/Units 05:50 05:50 RBC 3.52 L (3.80-5.40) m/uL Hgb 10.0 L (11.4-16.0) gm/dL Hct 31.8 L (34.0-46.0) % BUN 20 H (7-17) mg/dL Assessment and Plan Assessment: Right upper lobe non-small cell cancer stage I Severe degree of COPD Extensive history of smoking and nicotine use Mood disorder depression Chest pain postoperative Insomnia Plan: Continue deep breathing exercise DVT and peptic ulcer disease prophylaxis Follow chest x-ray Pain control Continue melatonin Time with Patient: Greater than 30
[2019-11-08] MEDS: HYDROmorphone 1 MG/ML 1 ML SYRINGE IVP PRN (21:03)
[2019-11-08] MEDS: MELATONIN 1 MG TAB PO SCH (22:36)
[2019-11-09] MEDS ORDERED: diphenhydrAMINE 50 MG/ML 1 ML VIAL IVP PRN (00:41)
[2019-11-09] MEDS ORDERED: diphenhydrAMINE 2% CREAM 28.4 GM TUBE TOPICAL PRN (00:41)
[2019-11-09] MEDS: methylPREDNISolone SOD SUCCI 125 MG/2 ML VIAL IV SCH ×2 (00:59→06:29)
[2019-11-09] MEDS: KETOROLAC 30 MG/ML 1 ML VIAL IVP SCH ×2 (06:29→12:14)
[2019-11-09] MEDS: PANTOPRAZOLE 40 MG TABLET PO SCH (06:29)
--- NOTE | 2019-11-09 06:59 | XR ---
EXAMINATION TYPE: XR chest 2V DATE OF EXAM: 11/09/2019 COMPARISON: 11/08/2019 INDICATION: Post right upper lobectomy TECHNIQUE: Frontal and lateral views of the chest are obtained. FINDINGS: The heart size is normal. The pulmonary vasculature is normal. Patient is status post right upper lobectomy. Right-sided chest tube is present. Right apical pneumot horax appears stable in size. IMPRESSION: 1. Residual apical pneumothorax post right lobectomy
[2019-11-09] MEDS: IPRATROPIUM-ALBUTEROL 3 ML NEB IH SCH ×4 (07:27→19:38)
[2019-11-09] MEDS: HEPARIN SODIUM,PORCINE 5,000 UNIT/ML 1 ML VIAL SQ SCH ×2 (08:13→17:41)
[2019-11-09] MEDS: SENNOSIDES-DOCUSATE SODIUM 1 EACH TAB PO SCH ×2 (08:14→20:39)
--- NOTE | 2019-11-09 10:30 | P.PN ---
Subjective Progress Note Date: 11/09/19 Principal diagnosis: Lung carcinoma, right upper lobe. Previous medical history of long history of tobacco dependence, recent cessation, COPD, marijuana use, and family history of lung cancer and myocardial infarction. POD #6 Robotic-assisted thoracoscopic right upper lobectomy with mediastinal lymph node dissection Postoperative right apical pneumothorax, expected outcome The patient is currently sitting up in bed in no acute distress. States pain is controlled with current medication regimen. Denies shortness of breath. Right pleural chest tube remains to waterseal, continues to have intermittent air leak present mostly with forceful coughing, chest x-ray this morning demonstrates continued pneumothorax. Patient does remain asymptomatic. She has been ambulate in the hallway without difficulty. Objective - Vital Signs Vital signs: Vital Signs Temp 98.1 F 11/09/19 08:15 Pulse 80 11/09/19 08:15 Resp 18 11/09/19 08:15 BP 124/68 11/09/19 08:15 Pulse Ox 96 11/09/19 08:15 Intake & Output 11/08/19 11/09/19 11/09/19 18:59 06:59 18:59 Intake Total 240 240 Output Total 0 Balance 240 0 240 Weight 72.5 kg Intake: Oral 240 240 Output: Drainage 0 Right Lower Lateral Chest 0 Other: Voiding Method Toilet Toilet # Voids 1 1 # Bowel Movements 0 - Constitutional General appearance: Present: cooperative, no acute distress - Respiratory Details: Lungs sounds diminished bilaterally. Respirations even, nonlabored. Currently on room air with oxygen saturation 98%. Able to achieve 5552-7681 mL on incentive spirometry. Right pleural chest tube present, continues to waterseal, minimal serosanguineous drainage in the last 24 hours, positive intermittent air leak present mostly with forceful coughing. - Cardiovascular Details: S1, S2 present. Regular rate and rhythm, sinus rhythm on telemetry. Palpable peripheral pulses bilaterally. No edema present. No calf pain or tenderness noted. SCDs present. - Gastrointestinal Gastrointestinal Comment(s): Abdomen soft, nontender, nondistended. Active bowel sounds present 4 quadran ts. Tolerating diet. - Genitourinary Genitourinary Comment(s): Continues to void clear, yellow urine - Integumentary Integumentary Comment(s): Skin is warm and dry with evidence of good perfusion. Right lateral chest wall incisions well approximated and covered with dry intact dressing. - Neurologic Neurologic: Present: CNII-XII intact - Musculoskeletal Musculoskeletal: Present: gait normal, strength equal bilaterally - Psychiatric Psychiatric: Present: A&O x's 3, appropriate affect, intact judgment & insight - Allied health notes Allied health notes reviewed: nursing - Labs CBC & Chem 7: 11/08/19 05:50 11/08/19 05:50 - Imaging and Cardiology Chest x-ray: report reviewed, image reviewed Assessment and Plan Assessment: 1. Lung carcinoma, right upper lobe, positive for non-small cell carcinoma per CT-guided needle biopsy, status post robotic-assisted thoracoscopic right upper lobectomy with mediastinal lymph node dissection 2. Previous heavy tobacco dependence 3. COPD 4. Marijuana use 5. Family history of lung cancer and myocardial infarction 6. Recent diagnosis of depression 7. Postoperative right pneumothorax Plan: 1. Continue right pleural chest tube to water seal. Will monitor for resolution of air leak. Pathology pending. May consider discharging patient to home with chest tube connected to Heimlich valve until air leak resolves 2. Encourage incentive spirometry use 10 times every hour while awake. 3. Increase activity, ambulate in hallway 4. Encourage continued smoking cessation. Nicotine patches ordered 5. Bronchodilators per pulmonology 6. Pain control with current medication regimen. 7. Repeat chest x-ray in the morning 8. Stool softeners added 9. Family may bring in food from home 10. More recommendations to follow Time with Patient: Greater than 30
[2019-11-09 14:26] VITALS: BMI 27.4
--- NOTE | 2019-11-09 14:54 | P.PN ---
Subjective Progress Note Date: 11/09/19 Principal diagnosis: Right upper lobe non-small cell cancer stage I Severe degree of COPD Extensive history of smoking and nicotine use Mood disorder depression 11/09/2019, patient seen eval examined during the rounds labs reviewed medications reviewed patient is still have air leak is present chest tube is water seal, denies any chest pain able to move around and ambulate 11/08/2019, patient seen eval examined during the rounds labs reviewed medications reviewed care plan discussed with the patient at length, still have intermittent air leak is present on the chest, chest you history the water seal, pain is better under control, we'll continue observe clinical course x-ray performed earlier todaysignificant pneumothorax seen 11/07/2019, patient seen eval examined during the rounds labs reviewed medications reviewed care plan discussed, cough congestion shortness of breath is improved chest pain is better, patient's has a small air leak, pneumothorax is minimal, x-rays reviewed care plan discussed with cardiothoracic surgery and patient as well 11/06/2019, patient seen eval examined during the rounds labs reviewed medications reviewed care plan discussed, no obvious distress present pain is improved now is still have intermittent air leak out of her chest x-ray showed no significant pneumothorax, chest tube remains on suction 11/05/2019, patient seen eval examined during the rounds labs reviewed medications reviewed, air leak is present to the chest tube, x-ray on water seal showed significant pneumothorax this morning issues with the pain and insomnia have been dealt with, patient has been on [place] Toradol and has been started on Dilaudid if pain does not improve Toradol does have been escalated, 11/04/2019, patient seen eval examined during the rounds labs reviewed medications reviewed care plan discussed with the patient as well, patient has a right-sided chest tube minimal air leak is present denies any chest pain chest x-ray showed well expanded lungs no residual pneumothorax is seen slight discomfort is present otherwise patient has been doing well This is a pleasant 48-year-old female who was seen evaluated examined on third f [place] this patient is well-known to me from the office she has been found to have a right upper lobe mass underwent robotic right upper lobe lobectomy with mediastinal lymph node dissection, postop day #0 evaluated postoperatively, patient has a right-sided chest tube with some air leak is present she is awake and alert denies any chest pain or shortness of breath some 8 The operative site are present Objective - Vital Signs Vital signs: Vital Signs Temp 98.2 F 11/09/19 11:50 Pulse 80 11/09/19 11:50 Resp 18 11/09/19 11:50 BP 114/67 11/09/19 11:50 Pulse Ox 94 L 11/09/19 11:50 Intake & Output 11/08/19 11/09/19 11/09/19 18:59 06:59 18:59 Intake Total 240 480 Output Total 0 Balance 240 0 480 Weight 72.5 kg 72.5 kg Intake: Oral 240 480 Output: Drainage 0 Right Lower Lateral Chest 0 Other: Voiding Method Toilet Toilet # Voids 1 1 # Bowel Movements 0 - Exam - Constitutional General appearance: average body habitus, cooperative, disheveled, mild distress - EENT Eyes: anicteric sclerae, EOMI, PERRLA, normal appearance ENT: normal oropharynx Ears: bilateral: normal - Neck Neck: normal ROM Carotids: bilateral: upstroke normal Thyroid: negative: normal size - Respiratory Respiratory: bilateral: CTA - Cardiovascular Rhythm: regular Heart sounds: normal: S1, S2 - Gastrointestinal General gastrointestinal: decreased bowel sounds - Integumentary Integumentary: normal turgor - Neurologic Neurologic: CNII-XII intact - Musculoskeletal Musculoskeletal: gait normal, generalized weakness, strength equal bilaterally - Psychiatric Psychiatric: A&O x's 3, appropriate affect, intact judgment & insight - Labs CBC & Chem 7: 11/08/19 05:50 11/08/19 05:50 Assessment and Plan Assessment: Right upper lobe non-small cell cancer stage I Severe degree of COPD Extensive history of smoking and nicotine use Mood disorder depression Chest pain postoperative Insomnia Plan: Continue deep breathing exercise DVT and peptic ulcer disease prophylaxis Follow chest x-ray Pain control Continue melatonin Time with Patient: Greater than 30
[2019-11-09] MEDS: HYDROcodone/APAP 10-325MG 1 EACH TAB PO PRN (16:31)
[2019-11-09] MEDS: MELATONIN 1 MG TAB PO SCH (20:38)
[2019-11-09] MEDS: HYDROmorphone 1 MG/ML 1 ML SYRINGE IVP PRN (20:47)
[2019-11-10] MEDS: HEPARIN SODIUM,PORCINE 5,000 UNIT/ML 1 ML VIAL SQ SCH ×2 (02:44→09:21)
[2019-11-10] MEDS: PANTOPRAZOLE 40 MG TABLET PO SCH (06:12)
[2019-11-10] MEDS: HYDROcodone/APAP 10-325MG 1 EACH TAB PO PRN ×2 (06:56→11:14)
[2019-11-10] MEDS: IPRATROPIUM-ALBUTEROL 3 ML NEB IH SCH ×2 (07:10→11:02)
--- NOTE | 2019-11-10 07:31 | XR ---
EXAMINATION TYPE: XR chest 2V DATE OF EXAM: 11/10/2019 COMPARISON: 11/09/2019 HISTORY: Right upper lobectomy. Pneumothorax. Follow-up exam. TECHNIQUE: Frontal and lateral views of the chest are obtained. FINDINGS: Right apical pneumothorax has slightly decreased in the interim with maximal apical pleura l separation of 3.4 cm. Right thoracostomy tube abuts the medial pleural surface of the right lung ap ex. Increased retrosternal airspace and flattening the diaphragms on lateral view suggests underlying COPD. Strand-like bibasilar atelectasis is present. Cardiomediastinal silhouette is stable. IMPRESSION: 1. Slight decrease in size of the right apical pneumothorax. 2. Minimal bibasilar subsegmental dependent atelectasis.
[2019-11-10] MEDS: SENNOSIDES-DOCUSATE SODIUM 1 EACH TAB PO SCH (09:21)
[2019-11-10 10:31] VITALS: RESP 18; TEMP 97.8
--- NOTE | 2019-11-10 10:43 | P.PN ---
Subjective Progress Note Date: 11/10/19 Principal diagnosis: Lung carcinoma, right upper lobe, pathology consistent with stage IB moderately differentiated adenocarcinoma. Previous medical history of long history of tob acco dependence, recent cessation, COPD, marijuana use, and family history of lung cancer and myocardial infarction. POD #7 Robotic-assisted thoracoscopic right upper lobectomy with mediastinal lymph node dissection Postoperative right apical pneumothorax with continued air leak, expected outcome The patient is currently sitting up in bed in no acute distress. States pain is controlled with current medication regimen. Denies shortness of breath. Right pleural chest tube remains to waterseal, continues to have intermittent air leak present mostly with forceful coughing, chest x-ray this morning demonstrates continued pneumothorax. Patient does remain asymptomatic. She has been ambulat e in the hallway without difficulty and really wants to go home. Objective - Vital Signs Vital signs: Vital Signs Temp 97.8 F 11/10/19 08:00 Pulse 79 11/10/19 08:00 Resp 18 11/10/19 08:00 BP 116/63 11/10/19 08:00 Pulse Ox 98 11/10/19 08:00 Intake & Output 11/09/19 11/10/19 11/10/19 18:59 06:59 18:59 Intake Total 480 Output Total 0 Balance 480 0 Weight 72.5 kg 72 kg Intake: Oral 480 Output: Drainage 0 Right Lower Lateral Chest 0 Other: Voiding Method Toilet Toilet # Voids 1 - Constitutional General appearance: Present: cooperative, no acute distress - Respiratory Details: Lungs sounds diminished bilaterally. Respirations even, nonlabored. Currently on room air with oxygen saturation 96%. Able to achieve 5437-3562 mL on incentive spirometry. Right pleural chest tube present, continues to waterseal, no drainage in the last 24 hours, positive intermittent air leak present mostly with forceful coughing. - Cardiovascular Details: S1, S2 present. Regular rate and rhythm, sinus rhythm on telemetry. Palpable peripheral pulses bilaterally. No edema present. No calf pain or tenderness noted. SCDs present. - Gastrointestinal Gastrointestinal Comment(s): Abdomen soft, nontender, nondistended. Active bowel sounds present 4 quadrants. Tolerating diet. - Genitourinary Genitourinary Comment(s): Continues to void clear, yellow urine - Integumentary Integumentary Comment(s): Skin is warm and dry with evidence of good perfusion. Right lateral chest wall incisions well approximated and covered with dry intact dressing. - Neurologic Neurologic: Present: CNII-XII intact - Musculoskeletal Musculoskeletal: Present: gait normal, strength equal bilaterally - Psychiatric Psychiatric: Present: A&O x's 3, appropriate affect, intact judgment & insight - Allied health notes Allied health notes reviewed: nursing - Labs CBC & Chem 7: 11/08/19 05:50 11/08/19 05:50 - Imaging and Cardiology Chest x-ray: report reviewed, image reviewed Assessment and Plan Assessment: 1. Lung carcinoma, right upper lobe, status post robotic-assisted thoracoscopic right upper lobectomy with mediastinal lymph node dissection. Pathology results T2 [id number] consistent with stage IB moderately differentiated adenocarcinoma 2. Previous heavy tobacco dependence 3. COPD 4. Marijuana use 5. Family history of lung cancer and myocardial infarction 6. Recent diagnosis of depression 7. Postoperative right pneumothorax with continued air leak Plan: 1. Pneumostat device applied. Patient will be discharged to home with Pneumostat, patient and daughter taught how to look for air leak. They are to contact our office when air leak has resolved for chest x-ray and possible removal. 2. Encourage incentive spirometry use 10 times every hour while awake. 3. Increase activity, ambulate in hallway 4. Encourage continued smoking cessation. 5. Bronchodilators per pulmonology 6. Pain control with current medication regimen. 7. Will discharge patient to home. Follow-up appointments made Time with Patient: Greater than 30
--- NOTE | 2019-11-10 12:09 | XR ---
EXAMINATION TYPE: XR chest 2V DATE OF EXAM: 11/10/2019 COMPARISON: Chest x-ray of the same date HISTORY: Status post right upper lobectomy. Pneumothorax follow-up. TECHNIQUE: Frontal and lateral views of the chest are obtained. FINDINGS: There is continued improvement in the right apical pneumothorax previously measuring 3.4 c m and now measuring 2.7 cm. Improved bibasilar atelectasis. Lungs are clear. Thoracostomy tube is sim ilar in position. Mild degenerative change of the spine. Cardiomediastinal silhouette is stable. IMPRESSION: Improving right apical pneumothorax and improved bibasilar atelectasis.
--- NOTE | 2019-11-10 12:10 | P.DS ---
Providers Date of admission: 11/03/19 05:34 Expected date of discharge: 11/10/19 Attending physician: Edenilson Carnes Consults: 11/03/19 11:43 Consult Physician Routine Consulting Provider: Zack Vann Consult Reason/Comments: pulm mgmt post lobectomy; known to you Do you want consulting provider notified?: Yes [facility] Course: FINAL DIAGNOSIS: 1. Lung carcinoma, right upper lobe, pathology consistent with stage IB moderately differentiated adenocarcinoma 2. Previous tobacco dependence 3. COPD 4. Marijuana use 5. Family history of lung cancer and myocardial infarction 6. Postoperative right apical pneumothorax with continued air leak PRINCIPAL PROCEDURE: 1. Robotic assisted thoracoscopic right upper lobectomy with mediastinal lymph node dissection HISTORY OF PRESENT ILLNESS: This is a 48-year-old active female who follows on an outpatient basis with Drs. Dillon Grijalva and Zack Vann. The patient had pres ented to the emergency room at [facility] with complaints of a cough. Her workup included chest x-ray demonstrating a mass in the right lung, she had a computed tomography scan confirming presence of a cavitary spiculated mass in the lower portion of the right upper lobe of the lung. There was no evidence of adenopathy on the CT. Subsequently she had a CT-guided needle biopsy which was positive for non-small cell carcinoma. Follow-up PET scan demonstrated uptake in the tumor with no evidence of metastasis, although there was some uptake in the right sternocleidomastoid muscle which was felt to be physiologic. The patient was referred to Dr. Carnes from cardiothoracic surgery by Dr. Vann. She was recommended to undergo robotic right upper lobectomy. The usual perioperative course was discussed in detail with the patient and her family, all risks and benefits were explained, all questions were answered, and consent was obtained to proceed with surgery. The patient wished to wait until after the holidays for surgery, hence surgery was scheduled in the beginning of October 2019 after completion of pulmonary function testing and cardiac clearance. HOSPITAL COURSE: The patient was brought to the hospital on 11/03/2019, taken to the preoperative area, prepared in the usual fashion, and subsequently taken to the operating room where Dr. Carnes performed a robotic assisted thoracoscopic right upper lobectomy with mediastinal lymph node dissection. Upon completion of surgery the patient was extubated and taken to the recovery room for further monitoring. She was eventually admitted to the cardiac stepdown unit for further monitoring and rehabilitation. She continued to heal but despite several days with her chest tube on waterseal she continued to have a persistent air leak. Her oxygen was titrated down, she was ambulatory in the hallway without difficulty, she was tolerating oral diet, her pain was controlled, and she was ready to be discharged to home with Pneumostat device on postoperative day #7. The patient and her sister were taught how to evaluate for air leak in the pneumostatic device, and were told to call when there was no more air leak for 24 hours for chest x-ray and device removal. She received written and verbal instruction regarding her medications, activity restrictions, signs and symptoms requiring physician notification, and follow-up appointments. COMPLICATIONS: The patient experienced postoperative pneumothorax with prolonged air leak. Patient Condition at Discharge: Stable Plan - Discharge Summary Discharge Rx Participant: No New Discharge Prescriptions: New Sennosides-Docusate Sodium [Senokot-S] 1 each PO BID PRN tab PRN Reason: Constipation Acetaminophen Tab [Tylenol] 1,000 mg PO Q6HR PRN tab PRN Reason: Fever and/ or Mild Pain Continue Ipratropium Nebulized [Atrovent Nebulized 0.2 MG/ML] 1 dose INHALATION TID HYDROcodone/APAP 10-325MG [[place] 10-325] 1 tab PO Q6H PRN PRN Reason: Pain Nicotine 14Mg/24Hr Patch [Habitrol] 1 patch TOPICAL DAILY PRN PRN Reason: URGE TO SMOKE Discharge Medication List HYDROcodone/APAP 10-325MG [[place] 10-325] 1 tab PO Q6H PRN 10/27/19 [History] Ipratropium Nebulized [Atrovent Nebulized 0.2 MG/ML] 1 dose INHALATION TID 10/27/19 [History] Nicotine 14Mg/24Hr Patch [Habitrol] 1 patch TOPICAL DAILY PRN 10/27/19 [History] Acetaminophen Tab [Tylenol] 1,000 mg PO Q6HR PRN tab 11/10/19 [Rx] Sennosides-Docusate Sodium [Senokot-S] 1 each PO BID PRN tab 11/10/19 [Rx] Follow up Appointment(s)/Referral(s): Magdiel Jules MD [STAFF PHYSICIAN] - 12/01/19 10:15 am Dillon Grijalva MD [Primary Care Provider] - 11/18/19 9:15 am Edenilson Carnes MD [STAFF PHYSICIAN] - 11/17/19 1:00 pm Zack Vann MD [STAFF PHYSICIAN] - 11/15/19 10:30 am Patient Instructions/Handouts: Lung Lobectomy (DC), How to Care for Your Chest or Abdominal Catheter (DC) Activity/Diet/Wound Care/Special Instructions: DISCHARGE INSTRUCTIONS: 1. No driving for 2 weeks, or until physician gives their ok. 2. No lifting, pushing, or pulling more than 10 pounds for 2 weeks. The physician will advise of any restriction changes. 3. Continue pain control per as needed orders. Alternate acetaminophen (Tylenol) and ibuprofen (Motrin/Advil) for pain. 4. Continue with incentive spirometry and splinting until otherwise directed by the physician. 5. Evaluate Pneumostat device daily for airleak. Call office when no longer leaking for chest x-ray and possible removal 6. Routine incision care. No powders, lotions, ointments on incisions. 7. Please call surgeon/EYE SPECIALIST for temp greater than 101 F or purulent drainage from incisions. Any questions or concerns please call construction pit worker Palak @ or Ramiro @ Discharge Disposition: HOME SELF-CARE
[2019-11-10 12:56] VITALS: BP 116/64; PULSE 72
== END 2019-11-10 12:04 | disposition home or self-care (01) | DRG 164 ==
LOC: 2ORMAIN 05:34 → 3SCARD 10:31
PROVIDERS: ADMIT Thoracic Surgery (Cardiothoracic Vascular Surgery); ATTEND Thoracic Surgery (Cardiothoracic Vascular Surgery)
PROC: 07B74ZZ Excision of Thorax Lymphatic, Percutaneous Endoscopic Approach (ICD-10-PCS; 2019-11-03)
PROC: 0W9930Z Drainage of Right Pleural Cavity with Drainage Device, Percutaneous Approach (ICD-10-PCS; 2019-11-03)
PROC: 8E0W4CZ Robotic Assisted Procedure of Trunk Region, Percutaneous Endoscopic Approach (ICD-10-PCS; 2019-11-03)
PROC: 0BTC4ZZ Resection of Right Upper Lung Lobe, Percutaneous Endoscopic Approach (ICD-10-PCS; principal; 2019-11-03 07:30)
DX: C34.11 Malignant neoplasm of upper lobe, right bronchus or lung (principal); J93.9 Pneumothorax, unspecified; J93.82 Other air leak; F32.9 Major depressive disorder, single episode, unspecified; J44.9 Chronic obstructive pulmonary disease, unspecified; R59.9 Enlarged lymph nodes, unspecified; G47.00 Insomnia, unspecified; Z71.3 Dietary counseling and surveillance; Z71.6 Tobacco abuse counseling; Z87.891 Personal history of nicotine dependence; Z79.899 Other long term (current) drug therapy; Z87.01 Personal history of pneumonia (recurrent); Z90.49 Acquired absence of other specified parts of digestive tract; Z98.890 Other specified postprocedural states; Z88.0 Allergy status to penicillin; Z80.1 Family history of malignant neoplasm of trachea, bronchus and lung; Z82.49 Family history of ischemic heart disease and other diseases of the circulatory system
CPT/HCPCS: 71045; 71046; 80048; 85025; 85027; 86850; 86900; 86901; 88305; 88309; 88313; 88331; 88341; 88342; 94640; 94760

== ENCOUNTER → 2019-11-14 | Outpatient (CLI) | payer OTHER ==
--- NOTE | 2019-11-14 08:58 | XR ---
EXAMINATION TYPE: XR chest 2V DATE OF EXAM: 11/14/2019 COMPARISON: 11/10/2019 HISTORY: Status post lobectomy TECHNIQUE: Frontal and lateral views of the chest are obtained. FINDINGS: Right-sided chest tube is unchanged in position with its distal tip overlying the right lung apex. Si gnificant improvement in right-sided pneumothorax with small residual noted at the right costophrenic angle. The cardiac silhouette size is within normal limits. The osseous structures are grossly intact. IMPRESSION: 1. Significant improvement in right-sided pneumothorax with small residual noted at the right costop hrenic angle.
== END ==
LOC: RADXRMAIN 08:39
PROVIDERS: ATTEND Thoracic Surgery (Cardiothoracic Vascular Surgery)
DX: Z48.813 Encounter for surgical aftercare following surgery on the respiratory system (principal); R91.8 Other nonspecific abnormal finding of lung field; Z90.2 Acquired absence of lung [part of]
CPT/HCPCS: 71046

== ENCOUNTER → 2019-11-17 | Outpatient (CLI) | payer OTHER ==
--- NOTE | 2019-11-17 13:26 | XR ---
EXAMINATION TYPE: XR chest 2V DATE OF EXAM: 11/17/2019 COMPARISON: Prior chest x-ray 11/14/2019 HISTORY: Status post lobectomy right upper lobe, chest tube removal TECHNIQUE: Frontal and lateral views of the chest are obtained. FINDINGS: There is been interval removal of the right-sided chest tube. Right apical pneumothorax is present and a small tenting of the right hemidiaphragm is present. No other significant interval leisa nge. IMPRESSION: Small right apical pneumothorax status post chest tube removal. Postop changes. Results relayed to Palak Emerson telephonically at the time of interpretation at exam.
== END | disposition home or self-care (01) ==
LOC: RADXRMAIN 11:56
PROVIDERS: ATTEND Thoracic Surgery (Cardiothoracic Vascular Surgery)
DX: J93.9 Pneumothorax, unspecified (principal); Z90.2 Acquired absence of lung [part of]
CPT/HCPCS: 71046

== ENCOUNTER → 2020-01-12 | Outpatient (CLI) | payer OTHER ==
--- NOTE | 2020-01-12 14:22 | CT ---
EXAMINATION TYPE: CT chest wo con DATE OF EXAM: 01/12/2020 COMPARISON: Prior PET/CT August 10, 2019. Chest x-ray November 17, 2019 and older x-rays. HISTORY: Hyperventilation. History of lung cancer with partial right-sided pneumonectomy. CT DLP: 142.2 mGycm. Automated Exposure Control for Dose Reduction was Utilized. TECHNIQUE: CT scan of the thorax is performed without IV contrast. FINDINGS: LUNGS: There is mild to moderate underlying emphysematous change with partial right-sided pneumonecto my changes as there are right hilar surgical clips and sutures and right diaphragmatic juxtaphrenic p eaking all identified. No pleural effusion or pneumothorax seen bilaterally. No suspicious new nodule s or masses. MEDIASTINUM: Lack of IV contrast is noted to limit evaluation for mediastinal and especially hilar ad enopathy. There are no definitive greater than 1 cm hilar or mediastinal lymph nodes. No cardiomega ly or pericardial effusion is seen. OTHER: Cholecystectomy clips are seen. Mild to moderate multilevel spurring centered mid thoracic spi ne with multilevel mild disc space narrowing and vacuum disc phenomenon. IMPRESSION: Mild to moderate underlying emphysematous change along with right lung surgical changes. No new suspicious mass or adenopathy. No acute pulmonary process is evident.
== END | disposition home or self-care (01) ==
LOC: RADCTMAIN 13:29
PROVIDERS: ATTEND Family Medicine
DX: J43.9 Emphysema, unspecified (principal); Z98.890 Other specified postprocedural states
CPT/HCPCS: 71250

== ENCOUNTER 2021-04-26 01:49 | Emergency (ER) | payer OTHER ==
[2021-04-26 02:03] VITALS: RESP 20; TEMP 97.4
--- NOTE | 2021-04-26 02:33 | XR ---
EXAMINATION TYPE: XR chest 2V DATE OF EXAM: 04/26/2021 COMPARISON: 11/17/2019 HISTORY: Short of breath. Right lung surgery. TECHNIQUE: FINDINGS: There is minimal tenting of the medial right diaphragm. The heart and mediastinum are lasha l. There are no hilar masses. Lungs are clear of consolidation. Bony thorax is intact. IMPRESSION: No active cardiopulmonary disease. No adverse change compared to old exam.
--- NOTE | 2021-04-26 03:25 | ED ---
SOB HPI - General Chief Complaint: Shortness of Breath Stated Complaint: Anxiety Time Seen by Provider: 04/26/21 01:59 Source: patient, family, EMS Mode of arrival: EMS Limitations: no limitations - History of Present Illness Initial Comments: This patient is a 50-year-old woman who presents with complaint of anxiety and shortness of breath. The patient states that she has been under a lot of stress recently regarding a nephew who had been killed. The patient states that tonight she had been drinking alcohol for the first time in years and then be came very short of breath and anxious. MD Complaint: shortness of breath, anxiety Onset/Timin -: hour(s) Severity scale (1-10): 0 Consistency: constant Improves With: nothing Worsens With: other (Stress) Associated Symptoms: denies other symptoms Treatments Prior to Arrival: none - Related Data Home Medications Medication Instructions Recorded Confirmed HYDROcodone/APAP 10-325MG [[place] 1 tab PO Q6H PRN 10/27/19 10/27/19 10-325] Ipratropium Nebulized [Atrovent 1 dose INHALATION TID 10/27/19 10/27/19 Nebulized 0.2 MG/ML] Nicotine 14Mg/24Hr Patch [Habitrol] 1 patch TOPICAL DAILY PRN 10/27/19 10/27/19 Previous Rx's Medication Instructions Recorded Acetaminophen Tab [Tylenol] 1,000 mg PO Q6HR PRN tab 11/10/19 Sennosides-Docusate Sodium 1 each PO BID PRN tab 11/10/19 [Senokot-S] Allergies Allergy/AdvReac Type Severity Reaction Status Date / Time Penicillins Allergy Anaphylaxis Verified 04/26/21 02:03 Review of Systems ROS Statement: Those systems with pertinent positive or pertinent negative responses have been documented in the HPI. ROS Other: All systems not noted in ROS Statement are negative. Constitutional: Denies: fever, chills Respiratory: Reports: dyspnea. Denies: cough, wheezes, hemoptysis Cardiovascular: Denies: chest pain, palpitations, orthopnea, edema, syncope Gastrointestinal: Denies: abdominal pain, vomiting, diarrhea Genitourinary: Denies: dysuria, hematuria Musculoskeletal: Denies: back pain Skin: Denies: rash Neurological: Denies: headache, weakness Psychiatric: Reports: anxiety Past Medical History Past Medical History: COPD, Pneumonia Additional Past Medical History / Comment(s): RIGHT UPPER LOBE LUNG CANCER DIAGNOSED IN JULY 2019. History of Any Multi-Drug Resistant Organisms: None Reported Past Surgical History: Appendectomy, Cholecystectomy Additional Past Surgical History / Comment(s): LUNG BIOPSY. Past Anesthesia/Blood Transfusion Reactions: No Reported Reaction Past Psychological History: No Psychological Hx Reported Smoking Status: Current some day smoker, Former smoker Past Alcohol Use History: Occasional Past Drug Use History: Marijuana - Past Family History Mother Family Medical History: Cancer Additional Family Medical History / Comment(s): LUNG CANCER General Exam Limitations: no limitations General appearance: alert, appears intoxicated, anxious Head exam: Present: atraumatic, normocephalic Eye exam: Present: normal appearance. Absent: scleral icterus, conjunctival injection ENT exam: Present: normal oropharynx Neck exam: Present: normal inspection, full ROM Respiratory exam: Present: normal lung sounds bilaterally. Absent: respiratory distress, wheezes, rales, rhonchi, stridor, chest wall tenderness, accessory muscle use, decreased breath sounds Cardiovascular Exam: Present: regular rate, normal rhythm, normal heart sounds. Absent: systolic murmur, diastolic murmur, rubs, gallop GI/Abdominal exam: Present: soft. Absent: distended, tenderness, guarding, rebound, rigid, mass Extremities exam: Present: normal inspection, normal capillary refill. Absent: pedal edema, calf tenderness Back exam: Present: normal inspection. Absent: CVA tenderness (R), CVA tenderness (L) Neurological exam: Present: alert Psychiatric exam: Present: anxious. Absent: agitated, manic, suicidal ideation Skin exam: Present: warm, dry, intact, normal color. Absent: rash Course Vital Signs 04/26/21 04/26/21 01:55 03:32 Temperature 97.4 F L Pulse Rate 71 124 H Respiratory 20 20 Rate Blood Pressure 103/79 119/78 O2 Sat by Pulse 98 95 Oximetry Medical Decision Making - Medical Decision Making Patient's 50-year-old woman who presents with complaint that she is feeling anxious and short of breath. She was feeling better shortly after arrival. The patient does give history on over that she had once developed pneumothorax without having overt symptoms. Given this she had chest x-ray which does not show any abnormality. Patient ECG someone was comparison. Patient reevaluated, states she is feeling well. Discussed appropriate follow-up and return parameters. - EKG Data -: EKG Interpreted by Me EKG shows normal: sinus rhythm, axis (Normal), intervals (Normal), QRS complexes (Low voltage QRS complexes. Possible old septal infarct), ST-T waves (Normal) Rate: normal (Rate 63 bpm) Disposition Clinical Impression: Anxiety Disposition: HOME SELF-CARE Condition: Good Instructions (If sedation given, give patient instructions): Anxiety (ED) Is patient prescribed a controlled substance at d/c from ED?: No Referrals: Dillon Grijalva MD [Primary Care Provider] - 1-2 days
[2021-04-26 03:56] VITALS: BP 119/78; PULSE 124
== END 2021-04-26 03:33 | disposition home or self-care (01) ==
LOC: EC 01:49
DX: F41.9 Anxiety disorder, unspecified (principal); J44.9 Chronic obstructive pulmonary disease, unspecified; F17.200 Nicotine dependence, unspecified, uncomplicated; Z79.51 Long term (current) use of inhaled steroids; Z88.0 Allergy status to penicillin
CPT/HCPCS: 71046; 93005; 99285

== ENCOUNTER → 2021-08-21 | Outpatient (CLI) | payer OTHER ==
[2021-08-21 10:22] VITALS: BP 122/74; PULSE 67; RESP 18; TEMP 98.3
--- NOTE | 2021-08-21 11:01 | P.HPOB ---
History of Present Illness H&P Date: 08/21/21 Chief Complaint: The patient is here for her routine gynecologic exam and ma mmogram. This is a 50-year-old with an LMP of 2019. The patient is here to establish with this office. It has been about 3 years since her last pelvic exam. The patient is without gynecologic complaints and denies any postmenopausal bleeding. Review of Systems The patient's weight has been stable over the last year. She denies respiratory, cardiac, or G.I. problems. Past Medical History Past Medical History: Cancer, COPD Additional Past Medical History / Comment(s): RIGHT UPPER LOBE LUNG CANCER DIAGNOSED IN JULY 2019. 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 History of Any Multi-Drug Resistant Organisms: None Reported Past Surgical History: Appendectomy, Cholecystectomy, Hernia Repair, Tubal Ligation Additional Past Surgical History / Comment(s): RT LUNG BIOPSY. RT LUNG [id number]. Hiatal hernia repair. Past Anesthesia/Blood Transfusion Reactions: No Reported Reaction Past Psychological History: ADD/ADHD, Depression Smoking Status: Current every day smoker (4 cigarettes per day.) Past Alcohol Use History: Rare (2 per year) Additional Past Alcohol Use History / Comment(s): QUIT JULY 2019. SMOKED 30 YRS. Past Drug Use History: Marijuana Additional Drug Use History / Comment(s): DAILY USED FOR PAIN CONTROL.-Medical marijuana Additional History: She is and has not seen anybody at this time. 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 - Past Family History Mother Family Medical History: Cancer Additional Family Medical History / Comment(s): LUNG CANCER. Maternal grandmother had melanoma, maternal aunt had breast cancer, maternal uncle had pancreatic cancer. Medications and Allergies Home Medications Medication Instructions Recorded Confirmed Type HYDROcodone/APAP 10-325MG [[place] 1 tab PO BID 10/27/19 08/21/21 History 10-325] Dextroamphetamine/Amphetamine 10 mg PO BID 07/29/21 08/21/21 History [Adderall] Albuterol Sulfate [Proair Hfa] 1 - 2 puff INHALATION Q6HR PRN 08/21/21 08/21/21 History Allergies Allergy/AdvReac Type Severity Reaction Status Date / Time Penicillins Allergy Anaphylaxis Verified 08/21/21 10:19 Exam Vital Signs Temp Pulse Resp BP Pulse Ox 08/21/21 10:19 98.3 F 67 18 122/74 99 Intake and Output 08/20/21 08/21/21 08/21/21 22:59 06:59 14:59 Other: Weight 69.853 kg Height 5 feet 2-1/2 inches, weight 154 pounds, BMI 27.7. This is a well-developed well-nourished white female who is alert and oriented times 3 in no acute distress. HEENT: Within normal limits. NECK: Supple without mass or thyromegaly. CHEST AND LUNGS: Clear to auscultation. HEART: Regular rate and rhythm. BREASTS: Are without mass or discharge. AXILLARY EXAM: Negative for adenopathy. BACK: Negative for CVA tenderness. ABDOMEN: Soft, nontender, without palpable masses. PELVIC EXAM: Normal external genitalia with mild atrophy. Cervix and vagina appear normal with mild atrophy. There is no unusual discharge. There is no evidence of prolapse. The uterus is midposition, nongravid size and nontender. There are no palpable adnexal masses or tenderness. RECTAL EXAM: Rectovaginal exam is negative for mass or tenderness and is negative for occult blood. EXTREMITIES: Nontender. IMPRESSION: 1. 50-year-old menopausal female with normal gynecologic exam. 2. History of lung cancer. 3. Smoker. PLAN: 1. Pap smear cotest was performed. 2. Self breast awareness was discussed with the patient. We have also discussed symptoms associated with inflammatory breast cancer. 3. Screening mammogram will be done today. 4. Osteoporosis prevention was discussed. I have stressed the importance of adequate calcium, vitamin D and regular exercise. Recommended amounts of calcium and vitamin D were also discussed. 5. I recommended that she quit smoking. We have discussed many reasons why this is important especially with her history of lung cancer and COPD. 6. I have recommended that she follow up with her oncology doctor. It sounds like she may not have completed her recommended treatment. 7. I have recommended screening colonoscopy since she has not had a colonoscopy. She will try to arrange this through her PCP. 8. She has completed her Covid vaccination series and did get a booster. 9. STD prevention was discussed. I stressed importance of limiting sexual partners. I also recommended oozing condoms if she is sexually active. 10. She was advised to return in one year for her annual well woman exam.
--- NOTE | 2021-08-22 11:40 | MM ---
Reason for exam: screening (asymptomatic). History: Patient has history of other cancer at age 48. Family history of breast cancer in aunt at age 40 and breast cancer in cousin at age 63. Physical Findings: A clinical breast exam by your physician is recommended on an annual basis and results should be correlated with mammographic findings. MG Screening Mammo w CAD Bilateral CC and MLO view(s) were taken. No prior studies available for comparison. There are scattered fibroglandular densities. 3mm well circumscribed nodule 9 o'clock right breast. 6 month follow up recommended. ASSESSMENT: Probably benign, BI-RAD 3 RECOMMENDATION: Follow-up diagnostic mammogram of the right breast in 6 months.
== END ==
LOC: WWCWWP 09:55
PROVIDERS: ATTEND Obstetrics & Gynecology
DX: Z12.31 Encounter for screening mammogram for malignant neoplasm of breast (principal); Z01.419 Encounter for gynecological examination (general) (routine) without abnormal findings; J44.9 Chronic obstructive pulmonary disease, unspecified; F17.210 Nicotine dependence, cigarettes, uncomplicated; F90.9 Attention-deficit hyperactivity disorder, unspecified type; F32.9 Major depressive disorder, single episode, unspecified; Z85.118 Personal history of other malignant neoplasm of bronchus and lung; Z79.51 Long term (current) use of inhaled steroids; Z80.3 Family history of malignant neoplasm of breast; Z88.0 Allergy status to penicillin
CPT/HCPCS: 77067; 87491; 87591

== ENCOUNTER 2021-09-14 19:18 | Emergency (ER) | payer OTHER ==
[2021-09-14 20:18] VITALS: BP 118/79; PULSE 85; RESP 22; TEMP 97.9
[2021-09-14] MEDS ORDERED: ACET/COD 300 MG/30 MG STARTER PACK 6 TAB BTL PO STA (20:36)
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
--- NOTE | 2021-09-14 21:34 | CT ---
EXAMINATION TYPE: CT brain wo con DATE OF EXAM: 09/14/2021 COMPARISON: None HISTORY: Fall, head injury back of head CT DLP: 1188.4 mGycm Automated exposure control for dose reduction was used. Ventricles have normal size. There is no mass effect nor midline shift. There is no sign of intracran ial hemorrhage. Calvarium is intact. The skull base is intact. There is normal aeration of the mastoi d sinuses. IMPRESSION: Negative unenhanced head CT scan.
== END 2021-09-14 22:16 | disposition home or self-care (01) ==
LOC: EC 19:18
DX: S01.01XA Laceration without foreign body of scalp, initial encounter (principal); J44.9 Chronic obstructive pulmonary disease, unspecified; F32.A Depression, unspecified; F90.9 Attention-deficit hyperactivity disorder, unspecified type; F17.200 Nicotine dependence, unspecified, uncomplicated; F12.90 Cannabis use, unspecified, uncomplicated; Z88.0 Allergy status to penicillin; Z85.118 Personal history of other malignant neoplasm of bronchus and lung; Z90.49 Acquired absence of other specified parts of digestive tract; Z98.51 Tubal ligation status; Y04.0XXA Assault by unarmed brawl or fight, initial encounter
CPT/HCPCS: 12001; 70450; 99284

== ENCOUNTER → 2023-11-17 | Outpatient (CLI) | payer MEDICARE ==
--- NOTE | 2023-11-17 10:07 | CTL ---
"EXAMINATION TYPE: CT Low Dose Lung DATE OF EXAM ORDERED: 11/17/2023 HISTORY: Former smoker. Lung cancer screening. History of prior lung cancer removal CT DLP: 57.[address] CTDI: 1.6 mGy Automated exposure control for dose reduction was used. SCREENING VISIT: Initial COMPARISON: 01/12/2020 TECHNIQUE: Low dose computed tomography scan was performed through the chest at 1 mm thick sections a nd reconstructed images in the coronal plane at [address] DIAGNOSTIC QUALITY: Satisfactory FINDINGS: LUNG NODULES: Present, detailed below: 1. There is a lobular density posterior medial left lower lobe measuring 2.1 x 3.5 cm. Series 4 image 216. This is new from 2020. LUNGS: COPD: Severity: Moderate Fibrosis: Severity: None Lymph nodes: None Other findings: None RIGHT PLEURAL SPACE: Effusion: None Calcification: None Thickening: None Pneumothorax: None LEFT PLEURAL SPACE: Effusion: None Calcification: None Thickening: None Pneumothorax: None HEART: Heart Size: Normal Coronary calcification: Mild Pericardial effusion: None OTHER FINDINGS: Upper abdomen: Normal Bony thorax: Normal Supraclavicular region: Normal Other: Ascending thoracic aorta at the level the main pulmonary artery measures 3.2 cm. The main pul monary artery at the bifurcation measures 2.3 cm. IMPRESSION: 1. Suspicious lobular mass posterior medial left lower lung field. Recurrent or new lung neoplasm justin uld be considered. PET/CT recommended for additional evaluation. FOLLOW UP CT CHEST RECOMMENDATION: PET/CT CT LUNG RAD: Lung-Rad 4B Suspicious A Yellow level critical message alert has been initiated for Dillon Grijalva MD via the [facility] 36 0 | Critical Results System on 11/17/2023 10:02 AM. This message alert has been sent to Dillon Grijalva MD via the preferences provided by the clinician for the receipt of Radiology Critical Findings. [facility] [id number]."
== END | disposition home or self-care (01) ==
LOC: RADCTMAIN 09:28
PROVIDERS: ATTEND Family Medicine
DX: Z12.2 Encounter for screening for malignant neoplasm of respiratory organs (principal); F17.210 Nicotine dependence, cigarettes, uncomplicated
CPT/HCPCS: 71271

== ENCOUNTER → 2023-11-20 | Outpatient (CLI) | payer MEDICARE ==
--- NOTE | 2023-11-22 10:47 | PE ---
EXAMINATION TYPE: PET CT fusion skull to thigh DATE OF EXAM: 11/20/2023 CLINICAL INDICATION:Female, 53 years old with history of C34.90 Lung CA; TECHNIQUE: Following the intravenous administration of 10.0 mCi of F-18 FDG, whole body images are performed from the skull base to the midthigh. Images are reviewed on the computer in the coronal, a xial, and sagittal planes. Reconstructed rotating images are created on independent workstation and reviewed on the computer. A non-contrast CT is performed in conjunction with the PET scan. Glucose level 98 mg/dL CT DLP: 276 mGycm, Automated exposure control for dose reduction was used. COMPARISON: CT 11/17/2023, PET/CT 09/10/2019, FINDINGS: Mediastinal SUV mean is 2.1. Hepatic parenchyma SUV mean is 2.6. SKULL BASE AND NECK: No suspicious radiotracer activity. CHEST, MEDIASTINUM, AND HILAR REGION: * Right lower lobe 25 x 25 mm pulmonary nodule Max SUV 11.6. * Postsurgical changes to the right chest/lung without evidence for abnormal FDG activity. ABDOMEN AND PELVIS: No suspicious radiotracer activity. MUSCULOSKELETAL STRUCTURES: No suspicious radiotracer activity. OTHER CT: Atherosclerosis of the arterial vasculature. Paraseptal and centrilobular emphysema changes are seen throughout the lungs. Cholecystectomy clips. IMPRESSION: 1. Left lower lobes lobular mass with elevated FDG activity compatible with malignancy. No evidence for lymphadenopathy at this time. 2. Postsurgical changes of right chest without evidence for abnormal FDG activity within the right c hest.
== END | disposition home or self-care (01) ==
LOC: RADPETMAIN 13:03
PROVIDERS: ATTEND Family Medicine
DX: C34.90 Malignant neoplasm of unspecified part of unspecified bronchus or lung (principal)
CPT/HCPCS: 78815; A9552

== ENCOUNTER → 2024-01-15 | Outpatient (CLI) | payer MEDICARE, OTHER | END | disposition home or self-care (01) | LOC: LABPAT 13:21 | PROVIDERS: ATTEND Thoracic Surgery (Cardiothoracic Vascular Surgery) | DX: Z01.818 Encounter for other preprocedural examination (principal); C34.32 Malignant neoplasm of lower lobe, left bronchus or lung; R94.31 Abnormal electrocardiogram [ECG] [EKG] | CPT/HCPCS: 93005 ==

== ENCOUNTER → 2024-01-25 | Outpatient (CLI) | payer MEDICARE, OTHER ==
[2024-01-25 15:55] LABS: INR 0.9 (<1.2); Prothrombin Time 9.7 sec (10.0-12.5)
[2024-01-26 01:15] LABS: Appearance,Urine Clear (Clear); Bilirubin,Urine Negative (Negative); Blood,Urine Negative (Negative); Color,Urine Yellow (Yellow); Ketones,Urine Negative (Negative); Nitrite,Urine Negative (Negative); PH, Urine 5.5; Specific Gravity,Urine 1.018 (1.001-1.030); Urobilinogen,Urine 0.2 E.U./DL
[2024-01-26 01:31] LABS: Basophils # (A) 0.06 X 10*3/uL (0.00-0.10); Basophils % (A) 0.8 %; Eosinophils # (A) 0.19 X 10*3/uL (0.04-0.35); Eosinophils % (A) 2.7 %; HCT 44.5 % (37.2-46.3); HGB 14.5 g/dL (12.0-15.0); Lymphocytes # (A) 2.95 X 10*3/uL (0.90-5.00); Lymphocytes % (A) 41.8 %; MCH 30.8 pg (27.0-32.0); MCHC 32.6 g/dL (32.0-37.0); MCV 94.5 FL (80.0-97.0); Mean Platelet Volume 9.9 FL (9.5-12.2); Monocytes # (A) 0.34 X 10*3/uL (0.20-1.00); Monocytes % (A) 4.8 %; NRBC Per 100 WBC 0 X 10*3/uL (0.00-0.01); Neutrophils % (A) 49.6 %; Platelet Count 315 X 10*3/uL (140-440); RBC 4.71 X 10*6/uL (4.10-5.20); RDW 13.2 % (11.5-14.5); WBC 7.06 X 10*3/uL (4.50-10.00)
[2024-01-26 01:59] LABS: Blood Urea Nitrogen 13.8 mg/dL (9.0-27.0); Chloride 104 mmol/L (96-109); Glucose 99 mg/dL (70-110); Potassium 4.2 mmol/L (3.5-5.5); Sodium 140 mmol/L (135-145)
== END | disposition home or self-care (01) ==
LOC: LABPAT 15:09
PROVIDERS: ATTEND Thoracic Surgery (Cardiothoracic Vascular Surgery)
DX: Z01.812 Encounter for preprocedural laboratory examination (principal); C34.32 Malignant neoplasm of lower lobe, left bronchus or lung
CPT/HCPCS: 80051; 81003; 82565; 82947; 84520; 85025; 85610; 85730; 86850; 86900; 86901; 87086

== ENCOUNTER 2024-02-03 05:40 | Inpatient (IN) | payer MEDICARE, OTHER ==
[2024-01-29 11:32] VITALS: BMI 26.9
[2024-02-03] MEDS: LACTATED RINGERS 1,000 ML IV SCH (06:10)
[2024-02-03] MEDS: LACTATED RINGERS 1,000 ML IV ONE (06:10)
[2024-02-03] MEDS: fentaNYL (PF) 50 MCG/ML 2 ML AMP IVP ONE ×2 (06:42→07:25)
[2024-02-03] MEDS: MIDAZOLAM 2 MG/2 ML VIAL IVP ONE (06:42)
[2024-02-03] MEDS ORDERED: HYDROmorphone 0.5 MG/0.5 ML SYRINGE IVP PRN (07:00)
[2024-02-03] MEDS: ONDANSETRON 4 MG/2 ML VIAL IVP ONE (07:11)
--- NOTE | 2024-02-03 08:19 | P.ANPRN ---
Procedure Note - Anesthesia - Nerve Block Performed Bilateral Erector Spinae Single Time Out Performed: Yes Date of Procedure: 02/03/24 Procedure Start Time: 06:41 Procedure Stop Time: 06:49 Location of Patient: PreOp Indication: Acute Post-Operative Pain, Requested by Surgeon Sedation Type: Sedate with meaningful contact maintained Preparation: Sterile Prep Position: Prone Needle Types: Pajunk Needle Gauge: 21 Ultrasound used to visualize needle placement: Yes Ultrasound used to observe medication spread: Yes Injectate: 0.5% Ropivacaine (see comment for volume) (15 ml + 15 ml NS + 4 mg Dexamethasone per side) Blood Aspirated: No Pain Paresthesia on Injection Noted: No Resistance on Injection: Normal Image Stored and Saved: Yes Events: Uneventful and Well Tolerated
[2024-02-03] MEDS: BUPIVACAINE (PF) 0.5% 30 ML VIAL SQ ONE ×2 (08:25)
--- NOTE | 2024-02-03 10:47 | P.OP ---
Date of Procedure: 02/03/24 Preoperative Diagnosis: Lung Nodule Postoperative Diagnosis: Same Procedure(s) Performed: 1. Bronchoscopy 2. Insertion of left common femoral arterial line 3. Left robotic assisted thorascopic surgery with left lower lobe wedge resection 4. Mediastinal lymph node dissection 5. Intercostal nerve block - 2 levels Implants: None Anesthesia: CELESTEA Surgeon: Michael Mcelroy Pathology: other (LLL wedge, LN stations 6L, 7, 8L, 9L) Condition: stable Disposition: PACU Indications for Procedure: This patient is a 53 year-old F with a Stage 1B NSCLC of the RUL s/p lobectomy who developed a 3cm nodule in the LLL. The patient was very hesitant to undergo biopsy given previous experience with pneumothorax. Even robotic biopsy was offered. I recommended lung resection with possible lobectomy given that she is still very young, and function. Of note, the patient continues to smoke and has not been able to quit. Operative Findings: Left upper lobe very disease with severe bullous disease. Frozen on wedge positive for NSCLC with negative margins. Decision was made to not proceed with lobectomy. Description of Procedure: The patient was brought back the operating room and placed in the supine position. General anesthesia was induced and the patient was intubated with a double lumen tube. Bronchoscopy was performed to confirm position of the tube and for diagnostic purposes. The right upper lobe bronchial stump was in tact an d healed. There was some secretions on the right side. The entire tracheobronchial tree was otherwise free of masses or abnormalities. Ultrasound guided micropuncture technique was used to place a 4Fr sheath in the left common femoral artery and the patient was positioned in the right lateral decubitus position. Her left chest was prepepd and draped in the ususal sterile fashion and antibiotics were given. I made a 8mm incision in the 9th intercostal space posterior axillary line. Robotic camera was inserted and chest was insufflated to 10mm Hg. Two additional 12mm ports were placed anteriorly and posteriorly in the same intercostal space. A 4th 8mm port was placed posteriorly. A 15mm assist port was placed between ports 1 and 2 in the 10th intercostal space. 0.25% marcaine was used to perform intercostal nerve blocks at both levels. The Zimridei Xi robot was docked and the bipolar was used to take down the inferior pulmonary ligament. The level 8 and 9L lymph nodes were harvested here. The lung nodule was identified and multiple firings of the robotic stapler black load was used to perform a generous wedge resection. This was sent for frozen section analysis which revealed NSCLC with negative margins. Posteriorly the mediastinal pleura was taken down harvesting the level 7 node and level 6 node in the AP window. At this time, the upper lobe was noted to be severely disease and the decision was made to spare as much lung as possible. Completion lower lobectomy was not performed. 28F chest tube was placed and the left lung was inflated and all incisions were closed in layers. Patient was extubated.
--- NOTE | 2024-02-03 11:09 | XR ---
EXAMINATION TYPE: XR chest 1V portable DATE OF EXAM: 02/03/2024 HISTORY: post lung resection COMPARISON: None. TECHNIQUE: Single view of the chest is submitted. FINDINGS: Status post partial left-sided laminectomy. Left-sided chest tube is in place. Small amount of subcut aneous air. No sizable pneumothorax. The heart is stable. Hilar and mediastinal structures are within normal limits. Degenerative changes are seen of the dorsal spine. IMPRESSION: 1. Status post partial left-sided laminectomy. Left-sided chest tube is in place. Small amount of baker bcutaneous air.
[2024-02-03] MEDS ORDERED: ONDANSETRON 4 MG/2 ML VIAL IVP PRN (13:14)
[2024-02-03] MEDS ORDERED: IPRATROPIUM-ALBUTEROL 3 ML NEB IH PRN (13:14)
[2024-02-03] MEDS ORDERED: HYDROcodone/APAP 10-325MG 1 EACH TAB PO PRN (13:14)
[2024-02-03] MEDS: NICOTINE 21MG/24HR PATCH TRANSDERM SCH (13:24)
[2024-02-03] MEDS: KETOROLAC 15 MG/ML 1 ML VIAL IVP SCH (13:29)
[2024-02-03] MEDS: IPRATROPIUM-ALBUTEROL 3 ML NEB IH SCH (14:21)
[2024-02-03] MEDS ORDERED: ACETAMINOPHEN TAB 325 MG TAB PO PRN (15:45)
[2024-02-03] MEDS: HEPARIN SODIUM,PORCINE 5,000 UNIT/ML 1 ML VIAL SQ SCH (16:15)
[2024-02-03] MEDS: HYDROcodone/APAP 10-325MG 1 EACH TAB PO PRN (16:18)
[2024-02-03] MEDS: NON FORMULARY DRUG (Dextroamphetamine/Amphetamine [Adderall] 30 MG Tablet) PO SCH (18:52)
--- NOTE | 2024-02-03 20:48 | CONS ---
CONSULTATION HISTORY OF PRESENT ILLNESS: A 53-year-old white female, status post robotic-assisted thoracoscopy, left wedge, left lower lobectomy. Medications reviewed. The patient requested I come see her while in the hospital. She was operated on by Dr. Michael Mcelroy. She had a bronchoscopy, femoral art line, robotic removal of the lung. Biopsies pending. PHYSICAL EXAMINATION: VITAL SIGNS: Temp 97.5, blood pressure 111/66, O2 of 96% on room air. CARDIOVASCULAR: S1, S2. LUNGS: Scattered wheeze. HEMATOLOGY: Negative Homans. PSYCH: Fair mood and affect. ASSESSMENT: Her low blood pressure is now improved to 111/66. She is on breathing treatments. GERD medications, IV antibiotics. Prognosis guarded. Continue current treatment. We will talk with the patient. Please see further orders. MMODL / IJN: [id number] /
[2024-02-04] MEDS: PANTOPRAZOLE 40 MG TABLET PO SCH (06:02)
[2024-02-04 07:15] LABS: Basophils # (A) 0.1 k/uL (0-0.2); Basophils % (A) 1 %; Eosinophils % (A) 0 %; HCT 36.2 % (34.0-46.0); Lymphocytes # (A) 2.5 k/uL (1.0-4.8); Lymphocytes % (A) 23 %; MCHC 32.9 g/dL (31.0-37.0); MCV 94.4 fL (80.0-100.0); Mean Platelet Volume 7.6; Monocytes # (A) 0.7 k/uL (0-1.0); Monocytes % (A) 6 %; Neutrophils # (A) 7.4 k/uL (1.3-7.7); Neutrophils % (A) 68 %; Platelet Count 288 k/uL (150-450); RBC 3.83 m/uL (3.80-5.40); RDW 13.4 % (11.5-15.5); WBC 10.9 k/uL (3.8-10.6)
[2024-02-04 07:21] LABS: African American GFR (CKD) >90 (>60 ml/min/1.73 sqM); Anion Gap 2 mmol/L; Blood Urea Nitrogen 11 mg/dL (7-17); Calcium 8.5 mg/dL (8.4-10.2); Carbon Dioxide 25 mmol/L (22-30); Chloride 110 mmol/L (98-107); Glucose 90 mg/dL (74-99); Non-African American GFR(CKD) >90 (>60 ml/min/1.73 sqM); Potassium 3.8 mmol/L (3.5-5.1); Sodium 137 mmol/L (137-145)
[2024-02-04 07:24] LABS: HGB 11.9 gm/dL (11.4-16.0)
--- NOTE | 2024-02-04 08:00 | XR ---
EXAMINATION TYPE: XR chest 2V DATE OF EXAM: 02/04/2024 COMPARISON: 02/03/2024 HISTORY: Status post left-sided lung resection. TECHNIQUE: Frontal and lateral views of the chest are obtained. FINDINGS: Scattered senescent parenchymal changes noted. Hyperinflation compatible with COPD. Postoperative changes of partial lobectomy change left lung. Left-sided chest tube is in place withou t sizable pneumothorax evident. There is increasing subcutaneous emphysema along the right chest wall . Increasing left basilar linear atelectasis. Blunting of the costophrenic angles is redemonstrated. Heart size is stable. Mediastinal structures are stable and grossly unremarkable. No evidence for hilar prominence. Degenerative changes dorsal spine. IMPRESSION: 1. Postoperative changes of partial lobectomy change left lung. Left-sided chest tube is in place wit hout sizable pneumothorax evident. There is increasing subcutaneous emphysema along the right chest w all. Increasing left basilar linear atelectasis.
[2024-02-04] MEDS: DEXTROSE 5%-0.45% NACL 1,000 ML IV SCH (08:07)
[2024-02-04] MEDS: DEXAMETHASONE SOD PHOSPHATE 4 MG/ML 1 ML VIAL IV ONE (08:08)
[2024-02-04] MEDS: CHOLECALCIFEROL 25 MCG (1000 IU) TABLET PO SCH (09:12)
[2024-02-04 10:09] VITALS: RESP 18
[2024-02-04 13:40] VITALS: BP 97/55; PULSE 75; TEMP 98.3
--- NOTE | 2024-02-04 14:54 | P.DS ---
Providers Date of admission: 02/03/24 05:40 Expected date of discharge: 02/04/24 Attending physician: Michael Mcelroy MD Consults: 02/04/24 06:32 Consult Physician Routine Consulting Provider: Dillon Grijalva Reason/Comments: medical management Do you want consulting provider notified?: Yes Primary care physician: Dillon Grijalva [facility] Course: FINAL DIAGNOSIS: Lung nodule left lung, lower lobe Chronic ongoing tobacco dependence COPD Marijuana use Family history of lung cancer and myocardial infarction PRINCIPAL PROCEDURE: 1. Bronchoscopy 2. Insertion of left common femoral arterial line 3. Left robotic assisted thorascopic surgery with left lower lobe wedge resection 4. Mediastinal lymph node dissection 5. Intercostal nerve block - 2 levels HISTORY OF PRESENT ILLNESS: This is a 53-year-old female patient who follows on an outpatient basis for her primary care with Dr. Dillon Grijalva and with Dr. Vann for her pulmonary care. The patient recently on November 17, [address] a lung screening CT scan of her chest which demonstrated a lobular density posterior medial left lower lobe measuring 2.1 x 3.5 cm. For further evaluation the patient underwent a PET scan on November 20, 2023 which showed the left lower lobe lobular mass with elevated FDG activity compatible with malignancy. It also showed postsurgical changes of the right chest without evidence of abnormal FDG activity within the right chest. The patient also has a history of lung carcinoma, right upper lobe with pathology showing consistent with stage Ib moderately differentiated adenocarcinoma and subsequently underwent a robotic assisted thoracoscopic right upper lobectomy with mediastinal lymph node dissection in October 2019. The patient does continue to smoke. After her lobe ctomy in 2019 the patient did not have routine surveillance performed until her most recent lung cancer screening October 2023. Subsequently, due to the findings on the CT scan of the chest and on the PET scan a consult was placed to Dr. Michael Mcelroy from cardiothoracic surgery for further evaluation and treatment recommendations. Treatment options were discussed with the patient by Dr. Mcelroy, risks and benefits of surgery were discussed and knowing and understanding the risks the patient wished to proceed with the surgical option. HOSPITAL COURSE: The patient was brought to the hospital on 02/03/24, taken to the preoperative area, prepared in the usual fashion, and subsequently taken to the operating room where Dr. Mcelroy performed left robotic assisted thorascopic surgery with left lower lobe wedge resection with mediastinal lymph node dissection. Upon completion of surgery the patient was extubated and taken to the recovery room for further monitoring. There was no airleak in her chest tube and it was placed to waterseal the day of surgery. She was subsequently admitted to 3 S. cardiac stepdown unit for further recovery and hemodynamic monitoring. The following morning chest x-ray was stable, there was no air leak in her chest tube and it was discontinued without incident. Her oxygen was titrated down, she was tolerating an oral diet, her pain was controlled, and she was ready to be discharged to home on postoperative day #1. She received written and verbal instruction regarding her medications, activity restrictions, signs and symptoms requiring physician notification, and follow-up appointments. Plan - Discharge Summary Discharge Rx Participant: Yes New Discharge Prescriptions: Continue HYDROcodone/APAP 10-325MG [[place] 10-325] 1 tab PO BID PRN PRN Reason: Pain Albuterol Sulfate [Proair Hfa] 1 - 2 puff INHALATION Q6HR PRN PRN Reason: Shortness Of Breath Dextroamphetamine/Amphetamine [Adderall] 30 mg PO BID Vitamin D (Unknown Dose) 1 tab PO DAILY Discharge Medication List HYDROcodone/APAP 10-325MG [[place] 10-325] 1 tab PO BID PRN 10/27/19 [History] Albuterol Sulfate [Proair Hfa] 1 - 2 puff INHALATION Q6HR PRN 08/21/21 [History] Dextroamphetamine/Amphetamine [Adderall] 30 mg PO BID 01/29/24 [History] Vitamin D (Unknown Dose) 1 tab PO DAILY 01/29/24 [History] Follow up Appointment(s)/Referral(s): Dillon Grijalva MD [Primary Care Provider] - As Needed Zack Vann MD [STAFF PHYSICIAN] - 02/09/24 9:30 am Michael Mcelroy MD [STAFF PHYSICIAN] - 02/15/24 2:00 pm Activity/Diet/Wound Care/Special Instructions: DISCHARGE INSTRUCTIONS: 1. No driving for 2 weeks, or until physician gives their ok. 2. No lifting, pushing, or pulling more than 10 pounds for 2 weeks. The physician will advise of any restriction changes. 3. Continue pain control per as needed orders. 4. Continue with incentive spirometry and splinting until otherwise directed by the physician. 5. Leave chest tube dressing for 48 hours. After that, remove all dressings and shower daily. 6. Routine incision care. No powders, lotions, ointments on incisions. 7. Please call surgeon/BREWER HELPER for temp greater than 101 F or purulent drainage from incisions. 8. Smoking cessation counseling and program information provided. For any questions or concerns please call nurse practitioners Palak or Ramiro at [phone] Discharge Disposition: HOME SELF-CARE
== END 2024-02-04 15:54 | disposition home or self-care (01) | DRG 168 ==
LOC: 2ORMAIN 05:40 → 3SCARD 10:56
PROVIDERS: ADMIT Thoracic Surgery (Cardiothoracic Vascular Surgery); ATTEND Thoracic Surgery (Cardiothoracic Vascular Surgery)
PROC: 3E0T3BZ Introduction of Anesthetic Agent into Peripheral Nerves and Plexi, Percutaneous Approach (ICD-10-PCS; 2024-02-03)
PROC: 4A133B1 Monitoring of Arterial Pressure, Peripheral, Percutaneous Approach (ICD-10-PCS; 2024-02-03)
PROC: 4A133J1 Monitoring of Arterial Pulse, Peripheral, Percutaneous Approach (ICD-10-PCS; 2024-02-03)
PROC: 03HY32Z Insertion of Monitoring Device into Upper Artery, Percutaneous Approach (ICD-10-PCS; 2024-02-03)
PROC: 8E0W4CZ Robotic Assisted Procedure of Trunk Region, Percutaneous Endoscopic Approach (ICD-10-PCS; 2024-02-03)
PROC: 0BBJ4ZX Excision of Left Lower Lung Lobe, Percutaneous Endoscopic Approach, Diagnostic (ICD-10-PCS; principal; 2024-02-03 07:30)
PROC: 07B74ZX Excision of Thorax Lymphatic, Percutaneous Endoscopic Approach, Diagnostic (ICD-10-PCS; 2024-02-03 07:30)
DX: R91.1 Solitary pulmonary nodule (principal); J44.9 Chronic obstructive pulmonary disease, unspecified; F17.210 Nicotine dependence, cigarettes, uncomplicated; K21.9 Gastro-esophageal reflux disease without esophagitis; Z85.118 Personal history of other malignant neoplasm of bronchus and lung; Z82.49 Family history of ischemic heart disease and other diseases of the circulatory system; Z87.19 Personal history of other diseases of the digestive system; Z98.51 Tubal ligation status
CPT/HCPCS: 31624; 64999; 71045; 71046; 80048; 85025; 86850; 86900; 86901; 86920; 94640

== ENCOUNTER → 2024-07-12 | Outpatient (CLI) | payer MEDICARE, OTHER ==
--- NOTE | 2024-07-12 14:24 | XR ---
EXAMINATION TYPE: XR chest 2V DATE OF EXAM: 07/12/2024 COMPARISON: 02/04/2024 INDICATION: Chronic obstructive pulmonary disease TECHNIQUE: Frontal and lateral views of the chest are obtained. FINDINGS: The heart size is normal. The pulmonary vasculature is normal. There may be some chronic blunting of left costophrenic angle. Small left pleural effusion could be c onsidered. Hyperinflation and increased AP diameter is present compatible with COPD. IMPRESSION: 1. Chronic blunting left costophrenic angle or small left pleural effusion. 2. [facility], , 07/12/2024 2:22 PM
== END | disposition home or self-care (01) ==
LOC: RADXRMAIN 10:51
PROVIDERS: ATTEND Internal Medicine Sleep Medicine
DX: J44.9 Chronic obstructive pulmonary disease, unspecified
CPT/HCPCS: 71046